=== PATIENT | female | born 1970 | race Caucasian/White ===

== ENCOUNTER 2017-01-05 23:34 | Inpatient (IN) | payer OTHER ==
--- NOTE | 2017-01-05 23:55 | ED ---
General Adult HPI - General Stated complaint: reaction to med Time Seen by Provider: 01/05/17 23:43 Source: RN notes reviewed, old records reviewed - History of Present Illness Initial comments: This is a 46-year-old female to the ER for evaluation of shaking and traveling all over. Patient is on multiple medical's medications, psychiatric medications as admit to marijuana. Patient coming to she states her medications are making her shake and twitch. Unsure why. No new medications has not stopped taking any medications and denies illicit drugs. - Related Data Home Medications Medication Instructions Recorded Confirmed RX: HYDROcodone/APAP 7.5-325MG 1 tab PO TID PRN 04/21/14 02/11/16 [[place] 7.5-325] RX: Ipratropium/Albuterol Sulfate 1 puff INHALATION RT-Q6H PRN 11/30/15 02/11/16 [Combivent Respimat Inhaler] RX: Butalb/APAP/Caff 50-325-40Mg 1 tab PO Q4H PRN 12/31/15 02/11/16 [Fioricet 50-325-40] RX: clonazePAM [KlonoPIN] 0.5 mg PO HS 12/31/15 02/11/16 RX: ARIPiprazole [Abilify] 2 mg PO HS 02/11/16 02/11/16 RX: Gabapentin [Neurontin] 800 mg PO TID 02/11/16 02/11/16 metroNIDAZOLE [Metronidazole] 250 mg PO TID 02/11/16 02/11/16 Previous Rx's Medication Instructions Recorded RX: Atenolol [Tenormin] 12.5 mg PO BID #30 dose 12/04/15 RX: DULoxetine HCL [Cymbalta] 90 mg PO DAILY #90 capsule. 01/04/16 RX: oxyCODONE-APAP 5-325MG 1 tab PO Q6HR PRN #20 tab 02/11/16 [Percocet 5-325 mg] Allergies Allergy/AdvReac Type Severity Reaction Status Date / Time No Known Allergies Allergy Verified 01/05/17 23:56 Review of Systems ROS Statement: Those systems with pertinent positive or pertinent negative responses have been documented in the HPI. ROS Other: All systems not noted in ROS Statement are negative. Past Medical History Past Medical History: Chest Pain / Angina, Hypertension, Neurologic Disorder Additional Past Medical History / Comment(s): chronic back pain, headaches, rapid heart beat, anxiety, seizure 2015 in August, CAD, migraines History of Any Multi-Drug Resistant Organisms: None Reported Past Surgical History: Adenoidectomy, Orthopedic Surgery, Tonsillectomy, Tubal Ligation, Uterine Ablation Additional Past Surgical History / Comment(s): novasure implant, left ankle ORIF , oral surgery T + A, tubal ligation, open reduction and internal fixation of left ankle. Past Anesthesia/Blood Transfusion Reactions: No Reported Reaction Past Psychological History: Anxiety, Depression Smoking Status: Current every day smoker Past Alcohol Use History: None Reported Past Drug Use History: Marijuana Additional Drug Use History / Comment(s): occasional, smokes to get an appetite. - Past Family History Mother Family Medical History: COPD Sister(s) Family Medical History: No Reported History Brother(s) Family Medical History: Cancer Son(s) Family Medical History: No Reported History father Family Medical History: Cancer Additional Family Medical History / Comment(s): colon ca General Exam - General Exam Comments Initial Comments: Patient having generalized tonic activity, spreading throughout all limbs. General appearance: alert, in no apparent distress Head exam: Present: atraumatic, normocephalic, normal inspection Eye exam: Present: normal appearance, PERRL, EOMI. Absent: scleral icterus, conjunctival injection, periorbital swelling ENT exam: Present: normal exam, mucous membranes moist Neck exam: Present: normal inspection. Absent: tenderness, meningismus, lymphadenopathy Respiratory exam: Present: normal lung sounds bilaterally. Absent: respiratory distress, wheezes, rales, rhonchi, stridor Cardiovascular Exam: Present: regular rate, normal rhythm, normal heart sounds. Absent: systolic murmur, diastolic murmur, rubs, gallop, clicks GI/Abdominal exam: Present: soft, normal bowel sounds. Absent: distended, tenderness, guarding, rebound, rigid Extremities exam: Present: normal inspection, full ROM, normal capillary refill. Absent: tenderness, pedal edema, joint swelling, calf tenderness Back exam: Present: normal inspection Neurological exam: Present: alert, oriented X3, CN II-XII intact Psychiatric exam: Present: normal affect, normal mood Skin exam: Present: warm, dry, intact, normal color. Absent: rash Course Vital Signs 01/05/17 01/06/17 01/06/17 23:53 01:40 01:44 Temperature 99.1 F Pulse Rate 117 H 107 H Respiratory 18 16 Rate Blood Pressure 127/70 122/69 O2 Sat by Pulse 90 L 91 L 96 Oximetry 01/06/17 01/06/17 02:51 03:33 Temperature 98.6 F Pulse Rate 107 H 70 Respiratory 16 20 Rate Blood Pressure 111/60 107/63 O2 Sat by Pulse 98 96 Oximetry - Reevaluation(s) Reevaluation #1: 01/06/17 00:56 Went to give patient sedated medications for possible dyskinesia, patient's tremoring tremor trembling has stopped at this point in patient was sleeping, pulse ox normal Reevaluation #2: 01/06/17 03:57 Went to arouse patient, patient awoke and began to vomit profusely. Patient not answering questions at this time, then had mild seizure-like activity. After seizure-like activity patient remained alert but unresponsive Medical Decision Making - Medical Decision Making 46 seen at ER for evaluation of shaking tremor possible medication reaction. Patient has physiologic activity here in the emergency room. Patient be admitted for new onset seizure, prolonged postictal period, poor historian secondary to clinical condition and drug abuse - Lab Data Result diagrams: 01/06/17 00:30 01/06/17 00:30 Lab Results 01/06/17 01/06/17 01/06/17 Range/Units 00:30 00:30 00:30 WBC 16.0 H (3.8-10.6) k/uL RBC 4.13 (3.80-5.40) m/uL Hgb 13.5 (11.4-16.0) gm/dL Hct 42.0 (34.0-46.0) % MCV 101.7 H (80.0-100.0) fL MCH 32.7 (25.0-35.0) pg MCHC 32.2 (31.0-37.0) g/dL RDW 13.9 (11.5-15.5) % Plt Count 284 (150-450) k/uL Neutrophils % 73 % Lymphocytes % 18 % Monocytes % 6 % Eosinophils % 1 % Basophils % 1 % Neutrophils # 11.7 H (1.3-7.7) k/uL Lymphocytes # 3.0 (1.0-4.8) k/uL Monocytes # 0.9 (0-1.0) k/uL Eosinophils # 0.1 (0-0.7) k/uL Basophils # 0.1 (0-0.2) k/uL Macrocytosis Slight PT (9.0-12.0) sec INR (<1.2) APTT (22.0-30.0) sec Sodium 137 (137-145) mmol/L Potassium 4.1 (3.5-5.1) mmol/L Chloride 102 (98-107) mmol/L Carbon Dioxide 17 L (22-30) mmol/L Anion Gap 18 mmol/L BUN 8 (7-17) mg/dL Creatinine 0.60 (0.52-1.04) mg/dL Est GFR (MDRD) Af Amer >60 (>60 ml/min/1.73 sqM) Est GFR (MDRD) Non-Af >60 (>60 ml/min/1.73 sqM) Glucose 126 H (74-99) mg/dL Calcium 8.9 (8.4-10.2) mg/dL Phosphorus 4.7 H (2.5-4.5) mg/dL Magnesium 1.8 (1.6-2.3) mg/dL Total Bilirubin 0.2 (0.2-1.3) mg/dL AST 40 H (14-36) U/L ALT 30 (9-52) U/L Alkaline Phosphatase 102 (38-126) U/L Total Creatine Kinase 90 (30-135) U/L CK-MB (CK-2) 0.4 (0.0-2.4) ng/mL CK-MB (CK-2) Rel Index 0.4 Troponin I <0.012 (0.000-0.034) ng/mL Total Protein 6.7 (6.3-8.2) g/dL Albumin 4.3 (3.5-5.0) g/dL Salicylates <1.0 mg/dL Urine Opiates Screen (NotDetected) Ur Oxycodone Screen (NotDetected) Urine Methadone Screen (NotDetected) Ur Propoxyphene Screen (NotDetected) Acetaminophen <10.0 ug/mL Ur Barbiturates Screen (NotDetected) U Tricyclic Antidepress (NotDetected) Ur Phencyclidine Scrn (NotDetected) Ur Amphetamines Screen (NotDetected) U Methamphetamines Scrn (NotDetected) U Benzodiazepines Scrn (NotDetected) Urine Cocaine Screen (NotDetected) U Marijuana (THC) Screen (NotDetected) Serum Alcohol <10 mg/dL 01/06/17 01/06/17 Range/Units 00:30 01:15 WBC (3.8-10.6) k/uL RBC (3.80-5.40) m/uL Hgb (11.4-16.0) gm/dL Hct (34.0-46.0) % MCV (80.0-100.0) fL MCH (25.0-35.0) pg MCHC (31.0-37.0) g/dL RDW (11.5-15.5) % Plt Count (150-450) k/uL Neutrophils % % Lymphocytes % % Monocytes % % Eosinophils % % Basophils % % Neutrophils # (1.3-7.7) k/uL Lymphocytes # (1.0-4.8) k/uL Monocytes # (0-1.0) k/uL Eosinophils # (0-0.7) k/uL Basophils # (0-0.2) k/uL Macrocytosis PT 9.6 (9.0-12.0) sec INR 0.9 (<1.2) APTT 25.2 (22.0-30.0) sec Sodium (137-145) mmol/L Potassium (3.5-5.1) mmol/L Chloride (98-107) mmol/L Carbon Dioxide (22-30) mmol/L Anion Gap mmol/L BUN (7-17) mg/dL Creatinine (0.52-1.04) mg/dL Est GFR (MDRD) Af Amer (>60 ml/min/1.73 sqM) Est GFR (MDRD) Non-Af (>60 ml/min/1.73 sqM) Glucose (74-99) mg/dL Calcium (8.4-10.2) mg/dL Phosphorus (2.5-4.5) mg/dL Magnesium (1.6-2.3) mg/dL Total Bilirubin (0.2-1.3) mg/dL AST (14-36) U/L ALT (9-52) U/L Alkaline Phosphatase (38-126) U/L Total Creatine Kinase (30-135) U/L CK-MB (CK-2) (0.0-2.4) ng/mL CK-MB (CK-2) Rel Index Troponin I (0.000-0.034) ng/mL Total Protein (6.3-8.2) g/dL Albumin (3.5-5.0) g/dL Salicylates mg/dL Urine Opiates Screen Not Detected (NotDetected) Ur Oxycodone Screen Not Detected (NotDetected) Urine Methadone Screen Not Detected (NotDetected) Ur Propoxyphene Screen Not Detected (NotDetected) Acetaminophen ug/mL Ur Barbiturates Screen Not Detected (NotDetected) U Tricyclic Antidepress Not Detected (NotDetected) Ur Phencyclidine Scrn Not Detected (NotDetected) Ur Amphetamines Screen Not Detected (NotDetected) U Methamphetamines Scrn Not Detected (NotDetected) U Benzodiazepines Scrn Not Detected (NotDetected) Urine Cocaine Screen Not Detected (NotDetected) U Marijuana (THC) Screen Detected H (NotDetected) Serum Alcohol mg/dL Disposition Clinical Impression: Seizure, New onset seizure, Drug abuse, Recurrent seizures, Nausea and vomiting , Postictal state Disposition: ADMITTED IP TO THIS [facility] Condition: Fair Referrals: Bob Odom DO [Primary Care Provider] - 1-2 days
[2017-01-06] MEDS ORDERED: SODIUM CHLORIDE 0.9% 1,000 ML IV STA ×3 (00:06→03:54)
[2017-01-06] MEDS ORDERED: LORazepam 2 MG/ML INJ IV STA (00:07)
[2017-01-06] MEDS ORDERED: diphenhydrAMINE 50 MG/ML 1 ML VIAL IVP STA (00:07)
[2017-01-06 00:47] LABS: Basophils # (A) 0.1 k/uL (0-0.2); Basophils % (A) 1 %; CH 32.9; CHCM 32.5; Eosinophils # (A) 0.1 k/uL (0-0.7); Eosinophils % (A) 1 %; HDW 2.17; HGB 13.5 gm/dL (11.4-16.0); Luc # (Auto) 0.26; Luc % (Auto) 2; Lymphocytes % (A) 18 %; MCH 32.7 pg (25.0-35.0); MCHC 32.2 g/dL (31.0-37.0); MCV 101.7 fL (80.0-100.0); Macrocytosis Slight; Mean Platelet Volume 8.2; Monocytes # (A) 0.9 k/uL (0-1.0); Monocytes % (A) 6 %; Neutrophils # (A) 11.7 k/uL (1.3-7.7); Neutrophils % (A) 73 %; RBC 4.13 m/uL (3.80-5.40); RDW 13.9 % (11.5-15.5); WBC (Perox) 16.68
[2017-01-06 00:55] LABS: INR 0.9 (<1.2); Partial Thromboplastin Time 25.2 sec (22.0-30.0); Prothrombin Time 9.6 sec (9.0-12.0)
[2017-01-06 00:57] LABS: ALT 30 U/L (9-52); AST 40 U/L (14-36); Acetaminophen <10.0 ug/mL; Alkaline Phosphatase 102 U/L (38-126); Anion Gap 18 mmol/L; Blood Urea Nitrogen 8 mg/dL (7-17); Calcium 8.9 mg/dL (8.4-10.2); Carbon Dioxide 17 mmol/L (22-30); Chloride 102 mmol/L (98-107); Glucose 126 mg/dL (74-99); Magnesium 1.8 mg/dL (1.6-2.3); Non-African American GFR(MDRD) >60 (>60 ml/min/1.73 sqM); Phosphorus 4.7 mg/dL (2.5-4.5); Potassium 4.1 mmol/L (3.5-5.1); Salicylate <1.0 mg/dL; Sodium 137 mmol/L (137-145); Total Bilirubin 0.2 mg/dL (0.2-1.3); Total Protein 6.7 g/dL (6.3-8.2)
[2017-01-06 00:58] LABS: Alcohol <10 mg/dL
[2017-01-06 01:06] LABS: Creatine Kinase 90 U/L (30-135)
[2017-01-06 01:20] LABS: Creatine Kinase MB 0.4 ng/mL (0.0-2.4); Troponin I <0.012 ng/mL (0.000-0.034)
[2017-01-06] MEDS ORDERED: ONDANSETRON 4 MG/2 ML VIAL IVP STA ×2 (03:48→03:52)
[2017-01-06] MEDS ORDERED: levETIRAcetam IV 1,500 MG in SALINE 1 100ML.BAG IVPB STA (03:48)
[2017-01-06] MEDS ORDERED: SODIUM CHLORIDE 0.9% 500 ML IV STA (03:54)
[2017-01-06] MEDS: SODIUM CHLORIDE 0.9% 1,000 ML IV SCH ×3 (04:11→16:09)
--- NOTE | 2017-01-06 06:05 | CT ---
EXAM: CT Head Without Intravenous Contrast CLINICAL HISTORY: Reason: Pain TECHNIQUE: Axial computed tomography images of the head/brain without intravenous contrast. DLP is [address] exam was performed using one or more of the following dose reduction techniques: automated exposure control, adjustment of the mA and/or kV according to patient size, and/or use of iterative reconstruction technique. Coronal and sagittal reformatted images were created and reviewed. COMPARISON: CT head February 11, 2016 FINDINGS: Brain: No acute intracranial hemorrhage No territorial infarct Pelayo- white matter differentiation is maintained No edema. Midline shift: No midline shift Ventricles: Ventricles are normal in size Bones/joints: Calvarium shows no fracture Soft tissues: Unremarkable. Sinuses: Sinuses are clear Mastoid air cells: Unremarkable as visualized. No mastoid effusion. IMPRESSION: No acute intracranial hemorrhage, territorial infarct, mass, midline shift or extra-axial fluid collection
--- NOTE | 2017-01-06 10:47 | XR ---
EXAMINATION TYPE: XR chest 1V portable DATE OF EXAM: 01/06/2017 Comparison: 02/05/2016 Clinical History: 46-year-old female shortness of breath, pneumonia Findings: Heart is normal size. Aorta and pulmonary vasculature within normal limits. Mild interstitial promine nce appears increased from prior. No guillermo consolidation or pleural effusion. Impression: Interstitial changes appear slightly more accentuated from prior. Correlate for possible etiologies i ncluding bronchitis, atypical pneumonias, uncontrolled asthma, and interstitial pneumonitis.
[2017-01-06 11:29] VITALS: BMI 21.4
[2017-01-06 13:28] LABS: Appearance,Urine Clear (Clear); Bilirubin,Urine Negative (Negative); Glucose,Urine (UA) Negative (Negative); Ketones,Urine Negative (Negative); Leukocyte Esterase,Urine Negative (Negative); Nitrite,Urine Negative (Negative); Protein,Urine Negative (Negative); Specific Gravity,Urine 1.007 (1.001-1.035); UA Billing (MACRO vs. MICRO) CHEM; Urobilinogen,Urine <2.0 mg/dL (<2.0)
[2017-01-06] MEDS: ACETAMINOPHEN TAB 325 MG TAB PO PRN (13:29)
--- NOTE | 2017-01-06 15:47 | HP ---
HISTORY AND PHYSICAL CHIEF COMPLAINT: Shaking and tremors. HISTORY OF PRESENT ILLNESS: This 46-year-old woman with a past history of multiple medical problems, including history of hypertension, history of adenoidectomy, history of anxiety and depression being followed by Dr. Elizabeth Odom in the outpatient setting, was complaining of shaking and the patient all over the body. Patient seizures was suspected. The patient was given Ativan here and . is admitted. Patient is not running a fever. Patient had suspicion for pneumonia. There is no history of any headache, loss of consciousness. The patient is rather drowsy at this time. PAST MEDICAL HISTORY: History of chest pain, angina, anxiety, depression and COPD. MEDICATIONS: Prior to admission include home medications: 1. Ultram 50 to 100 mg p.o. q.6h p.r.n. 2. Klonopin 0.5 mg q.h.s. 3. Remeron 15 mg q.h.s. 4. Mobic 15 mg p.o. 5. Combivent 1 puff q.6h p.r.n. 6. Neurontin 800 mg p.o. t.i.d. 7. Cymbalta 90 mg p.o. daily. 8. Abilify 2 mg q.h.s. ALLERGIES: None. REVIEW OF SYMPTOMS: Family history, social history and review of systems could not be taken. The patient is drowsy and stuporous. Family history of COPD present. PHYSICAL EXAM: Patient pulse is 101, blood pressure 140/50, respiration 18, temperature 100.5, pulse ox 100% on 4 L. HEENT: Conjunctivae normal. Oral mucosa moist. Neck is no jugular venous distention. No carotid bruit. No lymph node enlargement. Cardiovascular S1, S2 muffled. No S3, no S4. Respiratory: Breath sounds decreased in the bases. A few scattered rhonchi. ABDOMEN: Soft, nontender. No mass palpable. Legs no edema, no swelling. NERVOUS SYSTEM: Higher functions as mentioned earlier. Otherwise moves all 4 limbs. Unable to cooperate with full exam. Skin no ulcer, rash, bleeding. Lymphatics: No lymph nodes palpable in the neck, axillae or groin. JOINTS: No active deformity. LABS: WBC 16, glucose 120. Other labs are noted. ASSESSMENT: 1. Acute right lower lobe pneumonia with possible sepsis present on admission. 2. Rule out seizures. 3. Increased WBC. 4. Hypertension. 5. History of back pain. 6. History of degenerative joint disease. 7. History of anxiety and depression. 8. History of continued ongoing nicotine dependence. RECOMMENDATIONS AND DISCUSSION: In this 46-year-old woman who presented with multiple complex medical issues we will monitor the patient closely. Continue the current medications, continue management and symptomatic treatment. Otherwise we will initiate broad-spectrum IV antibiotics. Obtain cultures. Guarded prognosis because of multiple complex medical issues. I would also recommend continue the current medications. Neurology consultation has been sought. Otherwise DVT prophylaxis. Otherwise see orders for further details. Otherwise Keppra has been recommended by Dr. Stewart. Prognosis guarded. Further recommendations to follow. Patient is currently stuporous. MMODL / IJN: [id number] /
[2017-01-06] MEDS: HEPARIN SODIUM,PORCINE 5,000 UNIT/ML 1 ML VIAL SQ SCH (16:08)
[2017-01-06] MEDS: PIPERACILLIN-TAZOBACTAM 3.375 GM in DEXTROSE/WATER 1 50ML.BAG IVPB SCH (16:08)
[2017-01-06] MEDS: PANTOPRAZOLE 40 MG/10 ML VIAL IVP SCH (16:09)
--- NOTE | 2017-01-06 18:44 | P.CNNES ---
History of Present Illness Consult date: 01/06/17 History of Present Illness: The patient is a 46-year-old woman who was admitted to the hospital to the hospital with possible seizure. She reports that she had a seizure several months ago but did not seek medical attention. Apparently the patient had complained of shaking all over the body. He was admitted with acute right lower lobe pneumonia with possible sepsis. Neurology is requested to see the patient regarding possible seizures area the patient recently received a bolus of Keppra in the emergency room. He T of the brain which was unremarkable is a poor historian. She states she has history of seizures but did not seek any medical attention in the past. Still slightly confused and disoriented. Review of Systems ROS unobtainable: due to mental status Past Medical History Past Medical History: Chest Pain / Angina, Hypertension, Neurologic Disorder Additional Past Medical History / Comment(s): chronic back pain, headaches, rapid heart beat, anxiety, seizure 2015 in August, CAD, migraines History of Any Multi-Drug Resistant Organisms: None Reported Past Surgical History: Adenoidectomy, Orthopedic Surgery, Tonsillectomy, Tubal Ligation, Uterine Ablation Additional Past Surgical History / Comment(s): novasure implant, left ankle ORIF , oral surgery T + A, tubal ligation, open reduction and internal fixation of left ankle. Past Anesthesia/Blood Transfusion Reactions: No Reported Reaction Past Psychological History: Anxiety, Depression Smoking Status: Current every day smoker Past Alcohol Use History: None Reported Past Drug Use History: Marijuana Additional Drug Use History / Comment(s): occasional, smokes to get an appetite. - Past Family History Mother Family Medical History: COPD Sister(s) Family Medical History: No Reported History Brother(s) Family Medical History: Cancer Son(s) Family Medical History: No Reported History father Family Medical History: Cancer Additional Family Medical History / Comment(s): colon ca Medications and Allergies Home Medications Medication Instructions Recorded Confirmed Type Ipratropium/Albuterol Sulfate 1 puff INHALATION RT-Q6H PRN 11/30/15 01/06/17 History [Combivent Respimat Inhaler] clonazePAM [KlonoPIN] 0.5 mg PO HS 12/31/15 01/06/17 History DULoxetine HCL [Cymbalta] 90 mg PO DAILY #90 capsule. 01/04/16 01/06/17 Rx ARIPiprazole [Abilify] 2 mg PO HS 02/11/16 01/06/17 History Gabapentin [Neurontin] 800 mg PO TID 02/11/16 01/06/17 History Meloxicam [Mobic] 15 mg PO DAILY 01/06/17 01/06/17 History Mirtazapine [Remeron] 15 mg PO HS 01/06/17 01/06/17 History traMADol HCL [Ultram] 50 - 100 mg PO Q6H PRN 01/06/17 01/06/17 History Allergies Allergy/AdvReac Type Severity Reaction Status Date / Time No Known Allergies Allergy Verified 01/06/17 07:57 Physical Examination - Vital Signs Vital Signs: Vital Signs Temp Pulse Pulse Resp BP BP Pulse Ox 01/06/17 16:00 95 18 01/06/17 15:00 99.2 F 95 18 109/55 93 L 01/06/17 12:22 101.2 F H 01/06/17 06:59 100.5 F H 101 H 18 106/58 100 01/06/17 05:23 92 99/72 100 01/06/17 05:03 86 18 110/76 100 01/06/17 04:14 104 H 20 118/62 99 01/06/17 04:07 116 H 128/68 92 L 01/06/17 03:33 98.6 F 70 20 107/63 96 01/06/17 02:51 107 H 16 111/60 98 01/06/17 01:44 96 01/06/17 01:40 107 H 16 122/69 91 L 01/05/17 23:53 99.1 F 117 H 18 127/70 90 L Intake and Output 01/06/17 01/06/17 01/06/17 06:59 14:59 22:59 Intake Total 500 700 Output Total 700 Balance 500 0 Intake: Amount of Fluid Infused ( 500 ml) Intake, IV Titration 700 Amount Sodium Chloride 0.9% 1, 700 000 ml @ 100 mls/hr IV . Q10H [facility] Rx#:[id number] Output: Urine 700 Other: Voiding Method Toilet Weight 49.89 kg 49.89 kg Patient Weight 01/07/17 06:59 Weight 49.89 kg - Constitutional General appearance: disheveled - Respiratory Respiratory: lungs clear - Cardiovascular Cardiovascular: regular rate, normal S1, normal S2 - Integumentary Integumentary: normal - Neurologic Status she was awake alert and oriented to place she did not know the year there was no a aphasia or dysarthria Cranial nerve examination: PERRL, EOMI, VFF, face symmetric, tongue midline Speech examination: intact Sensorimotor examination: intact Detailed motor examination: grossly full strength in all extremities - Psychiatric Psychiatric: mood/affect appropriate Results - Laboratory Findings CBC and BMP: 01/06/17 00:30 01/06/17 00:30 Abnormal Lab Findings: Abnormal Labs 01/06/17 01/06/17 01/06/17 00:30 00:30 01:15 WBC 16.0 H MCV 101.7 H Neutrophils # 11.7 H Carbon Dioxide 17 L Glucose 126 H Phosphorus 4.7 H AST 40 H U Marijuana (THC) Screen Detected H Assessment and Plan (1) Seizure Status: Acute Code(s): R56.9 - UNSPECIFIED CONVULSIONS Plan: The patient a 46-year-old woman with history of new onset seizure. She is admitted to the hospital with pneumonia. The patient was loaded with Keppra in the emergency room and will continue maintenance dose of Keppra. We'll check Keppra level in a.m. Recommend EEG. CT brain was done in the emergency room and was unremarkable. Recommend MRI of the brain
[2017-01-06] MEDS: ARIPiprazole 2 MG TAB PO SCH (22:52)
[2017-01-06] MEDS: levETIRAcetam IV 1,000 MG in SALINE 1 100ML.BAG IVPB SCH (22:53)
[2017-01-06] MEDS: MIRTAZAPINE 15 MG TAB PO SCH (22:53)
[2017-01-07] MEDS: PIPERACILLIN-TAZOBACTAM 3.375 GM in DEXTROSE/WATER 1 50ML.BAG IVPB SCH ×3 (00:12→17:51)
[2017-01-07] MEDS: HEPARIN SODIUM,PORCINE 5,000 UNIT/ML 1 ML VIAL SQ SCH ×2 (05:11→17:51)
[2017-01-07] MEDS: SODIUM CHLORIDE 0.9% 1,000 ML IV SCH ×2 (05:11→11:32)
[2017-01-07 07:48] LABS: Basophils % (A) 0 %; CH 32.2; CHCM 31.9; Eosinophils % (A) 1 %; HDW 2.18; HGB 12.5 gm/dL (11.4-16.0); Luc # (Auto) 0.16; Luc % (Auto) 2; Lymphocytes # (A) 1.6 k/uL (1.0-4.8); Lymphocytes % (A) 22 %; MCH 31.8 pg (25.0-35.0); MCHC 31.4 g/dL (31.0-37.0); MCV 101.5 fL (80.0-100.0); Macrocytosis Slight; Mean Platelet Volume 7.8; Monocytes # (A) 0.4 k/uL (0-1.0); Monocytes % (A) 6 %; Neutrophils # (A) 5.1 k/uL (1.3-7.7); Neutrophils % (A) 70 %; RBC 3.94 m/uL (3.80-5.40); WBC 7.4 k/uL (3.8-10.6); WBC (Perox) 7.77
[2017-01-07 07:57] LABS: Anion Gap 11 mmol/L; Blood Urea Nitrogen 11 mg/dL (7-17); Calcium 8.6 mg/dL (8.4-10.2); Carbon Dioxide 16 mmol/L (22-30); Chloride 113 mmol/L (98-107); Glucose 72 mg/dL (74-99); Non-African American GFR(MDRD) >60 (>60 ml/min/1.73 sqM); Sodium 140 mmol/L (137-145)
[2017-01-07 08:05] LABS: Potassium 4.2 mmol/L (3.5-5.1)
[2017-01-07] MEDS: PANTOPRAZOLE 40 MG/10 ML VIAL IVP SCH (10:19)
[2017-01-07] MEDS: levETIRAcetam IV 1,000 MG in SALINE 1 100ML.BAG IVPB SCH ×2 (10:20→21:50)
--- NOTE | 2017-01-07 13:00 | MR ---
EXAMINATION TYPE: MR brain wo con DATE OF EXAM: 01/07/2017 12:50 PM. COMPARISON: NONE. HISTORY: Seizure. Technique: Multiplanar, multiecho imaging of the brain was obtained without intravenous contrast. A fast brain protocol was utilized. FINDINGS: There is considerable motion artifact present on the study. Midline structures are unremarkable. There is a normal craniocervical junction. Echoplanar diffusion imaging is normal. There is a normal vertebral artery flow void. There are middle cerebral artery flow voids bilaterally . The carotid artery flow voids are not visualized due to patient motion artifact. There is no large CP angle mass lesion. There are scattered, subcentimeter high signal lesions in the deep white matter tracts of the cerebra l hemispheres. Only approximately 3 are demonstrated on this study. Numerous lesions may have been ov erlooked due to excessive patient motion artifact. There is no mass effect, midline shift or intracra nial blood. IMPRESSION: 1. MARKEDLY SUBOPTIMAL EXAMINATION DUE TO EXCESSIVE PATIENT MOTION ARTIFACT. 2. NO ACUTE INTRACRANIAL ABNORMALITY. 3. SCATTERED, HIGH SIGNAL FLAIR LESIONS WHICH MAY HAVE BEEN UNDERESTIMATED. THESE ARE NONSPECIFIC. A DIFFERENTIAL DIAGNOSIS INCLUDES DEMYELINATION, SMALL VESSEL DISEASE, HYPERTENSION, MIGRAINE HEADACHES AND LYME'S DISEASE.
--- NOTE | 2017-01-07 16:48 | PN ---
PROGRESS NOTE DATE OF SERVICE: 01/07/2017 INTERVAL HISTORY: This 46-year-old woman who was admitted with acute right lower pneumonia with possible sepsis is being closely monitored. The patient also had seizures also. Medication initiated by Dr. Stewart. MRI of the brain was done, which showed examination. No acute abnormality was noted. Nonspecific flare lesions also noted, which might suggest small vessel disease. No chest pain, no palpitation. PHYSICAL EXAM: Alert and oriented x3. Pulse 89, blood pressure 106/82, respiratory 20, temperature 98.2, pulse ox 97% on room air. HEENT: Conjunctivae normal. NECK: No jugular venous distention. CARDIOVASCULAR: S1, S2. RESPIRATORY: Breath sounds diminished in the bases. A few scattered rhonchi. No crackles. ABDOMEN: Soft, nontender. No mass palpable. LEGS: No edema. NERVOUS SYSTEM: No focal deficits. LABS: Sodium is 7.4, MCV 101.5. Sodium 140, potassium 4.2, CO2 16. UA noted, is positive. ASSESSMENT: 1. Acute right lower lobe pneumonia with possible sepsis present on admission, possibly aspiration. 2. Possible seizure, generalized tonic-clonic. 3. Increased WBC. 4. Hypertension. 5. History back pain. 6. History of degenerative joint disease. 7. History anxiety, depression. 8. Continued ongoing nicotine dependence. DISCUSSION AND RECOMMENDATIONS: Continue the current medications, symptomatic treatment. Continue with the broad - spectrum antibiotics. Continue the rest of the medications. Continue the Keppra. Closely follow with Neurology. Guarded prognosis. Further recommendations to follow. MMODL / IJN: [id number] / MTDD
[2017-01-07] MEDS: ACETAMINOPHEN TAB 325 MG TAB PO PRN (21:46)
[2017-01-07] MEDS: ARIPiprazole 2 MG TAB PO SCH (21:51)
[2017-01-07] MEDS: MIRTAZAPINE 15 MG TAB PO SCH (21:51)
[2017-01-08] MEDS: PIPERACILLIN-TAZOBACTAM 3.375 GM in DEXTROSE/WATER 1 50ML.BAG IVPB SCH ×3 (02:23→15:54)
[2017-01-08] MEDS: HEPARIN SODIUM,PORCINE 5,000 UNIT/ML 1 ML VIAL SQ SCH ×2 (04:06→15:54)
[2017-01-08 07:03] LABS: Basophils % (A) 0 %; CH 32.2; CHCM 32.3; Eosinophils % (A) 1 %; HCT 37.3 % (34.0-46.0); HDW 2.27; HGB 12.2 gm/dL (11.4-16.0); Luc # (Auto) 0.21; Luc % (Auto) 3; Lymphocytes % (A) 30 %; MCH 32.8 pg (25.0-35.0); MCHC 32.8 g/dL (31.0-37.0); Mean Platelet Volume 7.8; Monocytes # (A) 0.4 k/uL (0-1.0); Monocytes % (A) 6 %; Neutrophils # (A) 4.1 k/uL (1.3-7.7); Neutrophils % (A) 61 %; RBC 3.73 m/uL (3.80-5.40); WBC 6.7 k/uL (3.8-10.6); WBC (Perox) 7.07
[2017-01-08 07:09] LABS: Anion Gap 14 mmol/L; Blood Urea Nitrogen 11 mg/dL (7-17); Calcium 8.4 mg/dL (8.4-10.2); Carbon Dioxide 14 mmol/L (22-30); Chloride 116 mmol/L (98-107); Glucose 66 mg/dL (74-99); Non-African American GFR(MDRD) >60 (>60 ml/min/1.73 sqM); Sodium 144 mmol/L (137-145)
[2017-01-08] MEDS: levETIRAcetam IV 1,000 MG in SALINE 1 100ML.BAG IVPB SCH ×2 (07:53→23:24)
[2017-01-08] MEDS: ACETAMINOPHEN TAB 325 MG TAB PO PRN ×3 (08:17→23:33)
[2017-01-08] MEDS: PANTOPRAZOLE 40 MG/10 ML VIAL IVP SCH (08:56)
[2017-01-08] MEDS: SODIUM CHLORIDE 0.9% 1,000 ML IV SCH (12:12)
--- NOTE | 2017-01-08 17:58 | PN ---
PROGRESS NOTE DATE OF SERVICE: 01/08/2017 INTERVAL HISTORY: This 46-year-old woman was admitted with acute right pneumonia and as well as possible seizures. Neurology following the patient closely. Patient is on Keppra at this time. Brain MRI has been done by Dr. Mojgan Stewart, which showed scattered high signal FLAIR lesions indicating probably small vessel disease. No chest pain. No palpitations. No fever. EXAM: Alert, and oriented x3. Pulse is 53, blood pressure 130/62, respiratory 20, temperature 97.9, pulse ox 98% room air. HEENT: Conjunctivae normal. NECK: No jugular venous distention. CARDIOVASCULAR: S1, S2. RESPIRATORY: Breath sounds diminished in the bases. A few scattered rhonchi. No crackles. ABDOMEN: Soft, nontender. NERVOUS SYSTEM: No focal deficits. LABS: CBC within normal limits. The BMP noted. ASSESSMENT: 1. Acute right lower lobe pneumonia with possible sepsis present on admission, possibly aspiration. 2. Possible seizure generalized tonic-clonic. 3. Increased WBC. 4. Hypertension. 5. History back pain. 6. History of degenerative joint disease. 7. Anxiety depression. 8. Continued ongoing nicotine dependence. RECOMMENDATION AND DISCUSSION: I recommend to continue current management and continue symptomatic treatment. Otherwise at this time I recommend continue the antibiotics. Continue the rest of the medications. Continue the Keppra. Closely follow with Neurology. The prognosis guarded because of multiple complex medical issues. DVT prophylaxis and Dr. Soto will follow. MMODL / IJN: [id number] /
[2017-01-08] MEDS: ARIPiprazole 2 MG TAB PO SCH (23:22)
[2017-01-08] MEDS: MIRTAZAPINE 15 MG TAB PO SCH (23:22)
[2017-01-08 23:42] VITALS: RESP 16
[2017-01-09] MEDS: PIPERACILLIN-TAZOBACTAM 3.375 GM in DEXTROSE/WATER 1 50ML.BAG IVPB SCH ×2 (04:26→08:37)
[2017-01-09] MEDS: HEPARIN SODIUM,PORCINE 5,000 UNIT/ML 1 ML VIAL SQ SCH (04:27)
[2017-01-09] MEDS: ACETAMINOPHEN TAB 325 MG TAB PO PRN ×3 (08:27→21:29)
[2017-01-09] MEDS: PANTOPRAZOLE 40 MG/10 ML VIAL IVP SCH (08:37)
[2017-01-09] MEDS: levETIRAcetam IV 1,000 MG in SALINE 1 100ML.BAG IVPB SCH ×2 (08:37→20:37)
[2017-01-09 09:13] LABS: Basophils % (A) 0 %; CH 32.3; Eosinophils # (A) 0.1 k/uL (0-0.7); Eosinophils % (A) 1 %; HDW 2.31; HGB 12.4 gm/dL (11.4-16.0); Luc # (Auto) 0.15; Luc % (Auto) 2; Lymphocytes # (A) 1.9 k/uL (1.0-4.8); Lymphocytes % (A) 30 %; MCH 32.3 pg (25.0-35.0); MCHC 32.8 g/dL (31.0-37.0); MCV 98.6 fL (80.0-100.0); Mean Platelet Volume 8.1; Monocytes # (A) 0.4 k/uL (0-1.0); Monocytes % (A) 6 %; Neutrophils # (A) 3.8 k/uL (1.3-7.7); Neutrophils % (A) 60 %; RBC 3.86 m/uL (3.80-5.40); RDW 12.9 % (11.5-15.5); WBC 6.3 k/uL (3.8-10.6); WBC (Perox) 6.57
[2017-01-09 09:21] LABS: Anion Gap 11 mmol/L; Blood Urea Nitrogen 9 mg/dL (7-17); Calcium 8.7 mg/dL (8.4-10.2); Carbon Dioxide 18 mmol/L (22-30); Chloride 114 mmol/L (98-107); Glucose 96 mg/dL (74-99); Non-African American GFR(MDRD) >60 (>60 ml/min/1.73 sqM); Potassium 3.8 mmol/L (3.5-5.1); Sodium 143 mmol/L (137-145)
--- NOTE | 2017-01-09 14:56 | PN ---
PROGRESS NOTE DATE OF SERVICE: 01/09/2017 PRESENTING COMPLAINT: Shaking activity. INTERVAL HISTORY: This patient was admitted with shaking and tremor, felt to be possible seizure activity. Had an MRI which is also nonspecific. awaiting EEG, no further episodes. Tolerating a diet. REVIEW OF SYSTEMS: Done for constitutional, cardiovascular, GI, pulmonary; relevant findings as above. CURRENT MEDICATIONS: Reviewed that include IV Keppra, IV Zosyn. PHYSICAL EXAMINATION: Temperature 97.5 pulse 53, respirations 16, blood pressure 137/87. Pulse ox 97% on room air. GENERAL APPEARANCE: Lying in bed, comfortable. EYES: Pupils equal, conjunctivae normal, NECK: JVD not raised. Mass not palpable. RESPIRATORY EFFORT: Lungs decreased breath sounds. CARDIOVASCULAR: First and second sounds, no edema. ABDOMEN: Soft,nontender, liver and spleen not palpable. PSYCHIATRY: Alert and oriented x3. Mood and affect is normal. INVESTIGATIONS: White count 6.3, potassium 3.8. Bicarb 18. Urine drug screen positive for marijuana. MRI of the brain, nonspecific questionable demyelination. ASSESSMENT: 1. Activity of tremors and shaking could be seizure disorder. 2. Chronic nicotine dependence, patient an active cigarette smoker. 3. Recreational marijuana use. 4. Essential hypertension. 5. Anxiety, depression not otherwise specified. 6. Interstitial pneumonitis. PLAN: Await further input from Neurology pending EEG. Will see after reviewing the MRI. Will switch the patient over to oral Ceftin. MMODL / IJN: [id number] /
[2017-01-09] MEDS: HYDROmorphone 0.5 MG/0.5 ML SYRINGE IVP PRN ×2 (16:24→23:10)
[2017-01-09] MEDS: NICOTINE 21MG/24HR PATCH TRANSDERM SCH (16:24)
[2017-01-09] MEDS: ENOXAPARIN 40 MG/0.4 ML SYRINGE SQ SCH (16:25)
--- NOTE | 2017-01-09 18:35 | P.PN ---
Progress Note - Text Progress Note Date: 01/09/17 DATE OF SERVICE: 01/09/2017 PRESENTING COMPLAINT: shaking and tremors HISTORY OF PRESENT ILLNESS: 46-year-old female who presented to the emergency department with shaking sent and tremors felt to be a possible seizure. Admitted for the same MRI completed with nonspecific results, EEG pending. No further seizure episodes. INTERVAL HISTORY: 01/09/2017: Patient sitting up in the bed visiting with a friend no acute distress noted appears comfortable. Tolerating her diet. Ambulatory in the room and hallway has had no further seizure episodes.we'll continue Keppra. REVIEW OF SYSTEMS: Done for constitutional ,cardiovascular, GI, pulmonary with relevant findings as above. CURRENT MEDICATIONS Abilify 2 mg by mouth at bedtime, Ceftin 500 mg by mouth twice a day, Lovenox, Dilaudid, Keppra 100 mg IV piggyback, Remeron 15 mg by mouth at bedtime, nicotine patch, Protonix 40 mg IV push daily. PHYSICAL EXAM VITAL SIGNS: temperature 97.5, pulse 53, respiratory rate 16, blood pressure 1:30 737, oxygen saturation 97% on room air. GENERAL APPEARANCE: . Lying in bed, not in distress. EYES: Pupils equal. Conjunctiva normal. NECK: JVD not raised. Mass not palpable. RESPIRATORY: Respiratory effort normal. Lungs clear to auscultation. CARDIOVASCULAR: First and second sounds normal. No edema. ABDOMEN: Soft. Liver and spleen not palpable. No tenderness. No mass palpable. PSYCHIATRY: Alert and oriented x3. Mood and affect normal. NEUROLOGICAL: Cranial nerves grossly intact. No facial asymmetry. Power and sensation grossly intact INVESTIGATIONS: CBC grossly unremarkable, chloride 114, carbon dioxide 18. ASSESSMENT: -activity tremor and shaking could be seizure disorder. -Chronic nicotine dependence patient is an active cigarette smoker. -Recreational marijuana use. -Essential hypertension. -Anxiety, depression not otherwise specified. -Interstitial pneumonitis. PLAN: we'll await further input from neurology and EEG results continue Keppra continue seizure precautions and neuro checks. Plan of care discussed with the patient at the bedside she is in agreement will follow closely. [employer] statement: Patient was seen and examined by nurse practitioner Elizabeth Carmona and all elements of the case discussed with attending Dr. Soto
[2017-01-09] MEDS: MIRTAZAPINE 15 MG TAB PO SCH (20:37)
[2017-01-09] MEDS: CEFUROXIME 250 MG TAB PO SCH (20:37)
[2017-01-09] MEDS: ARIPiprazole 2 MG TAB PO SCH (20:37)
--- NOTE | 2017-01-09 21:47 | EEG ---
ELECTROENCEPHALOGRAM REPORT INTERPRETING PHYSICIAN: Nova Stewart M.D. INDICATION FOR EXAMINATION: This patient is a 46-year-old female being evaluated for new onset of tremors and twitching symptoms suggesting possible seizure disorder. The patient has been very lethargic. AGE: 46 EEG FINDINGS: A routine 21-channel awake digital EEG recording was accomplished utilizing the 10-20 international system with bipolar and referential montages. The background activity in the most alert resting state consists of a low to medium amplitude, fairly well developed and well sustained 5-6 Hertz activity over the posterior head regions. This posterior rhythm attenuates to eye opening. There is a small amount of low amplitude 18-20 Hertz beta activity seen maximally over the anterior head regions. Muscle and movement artifact was observed on a few occasions during the tracing. Hyperventilation was not performed. Photic stimulation at flash frequencies of 2-30 Hertz produced a minimal occipital driving response. No epileptiform discharges were seen. IMPRESSION: This EEG is moderately abnormal in a diffuse fashion due to slowing of the EEG background. The EEG failed to reveal any focal, lateralized, or epileptiform abnormalities. Clinical correlation is recommended. MMODL / IJN: [id number] /
[2017-01-10] MEDS ORDERED: PANTOPRAZOLE 40 MG TABLET PO SCH (07:30)
[2017-01-10] MEDS: CEFUROXIME 250 MG TAB PO SCH (07:43)
[2017-01-10] MEDS: ACETAMINOPHEN TAB 325 MG TAB PO PRN (07:43)
[2017-01-10] MEDS: ENOXAPARIN 40 MG/0.4 ML SYRINGE SQ SCH (07:43)
[2017-01-10] MEDS: NICOTINE 21MG/24HR PATCH TRANSDERM SCH (07:49)
[2017-01-10 07:59] VITALS: BP 140/75; PULSE 53; TEMP 98.6
[2017-01-10 08:15] LABS: Basophils % (A) 1 %; CH 32.9; CHCM 33.1; Eosinophils # (A) 0.1 k/uL (0-0.7); Eosinophils % (A) 1 %; HCT 40.9 % (34.0-46.0); HDW 2.38; HGB 13.3 gm/dL (11.4-16.0); Luc # (Auto) 0.17; Luc % (Auto) 3; Lymphocytes # (A) 2.2 k/uL (1.0-4.8); Lymphocytes % (A) 35 %; MCH 32.4 pg (25.0-35.0); MCHC 32.4 g/dL (31.0-37.0); MCV 99.8 fL (80.0-100.0); Mean Platelet Volume 7.6; Monocytes # (A) 0.3 k/uL (0-1.0); Monocytes % (A) 6 %; Neutrophils # (A) 3.5 k/uL (1.3-7.7); Neutrophils % (A) 55 %; RDW 12.9 % (11.5-15.5); WBC 6.2 k/uL (3.8-10.6); WBC (Perox) 6.12
[2017-01-10 08:35] LABS: Anion Gap 13 mmol/L; Blood Urea Nitrogen 7 mg/dL (7-17); Calcium 8.7 mg/dL (8.4-10.2); Carbon Dioxide 20 mmol/L (22-30); Chloride 111 mmol/L (98-107); Glucose 68 mg/dL (74-99); Non-African American GFR(MDRD) >60 (>60 ml/min/1.73 sqM); Potassium 3.8 mmol/L (3.5-5.1); Sodium 144 mmol/L (137-145)
[2017-01-10] MEDS ORDERED: levETIRAcetam 500 MG TAB PO SCH (09:00)
[2017-01-10] MEDS: HYDROmorphone 0.5 MG/0.5 ML SYRINGE IVP PRN (10:05)
--- NOTE | 2017-01-10 17:27 | P.DS ---
Providers Date of admission: 01/06/17 03:59 Expected date of discharge: 01/10/17 Attending physician: Dima Soto Consults: 01/06/17 03:59 Consult Physician Routine Consulting Provider: Nova Stewart Consult Reason/Comments: seizure Do you want consulting provider notified?: Yes Primary care physician: [facility] [place] Course: FINAL DIAGNOSES: -activity of tremor and shaking could be seizure disorder. -Chronic nicotine dependence patient is an active cigarette smoker. -Recreational marijuana use. -Essential hypertension. -Anxiety, depression not otherwise specified. -Interstitial pneumonitis. HOSPTIAL COURSE: 46-year-old female who presented to the emergency department with shaking, and tremors felt to be a possible seizure. Patient was admitted for the same. Home medications reordered, Cymbalta and Klonopin were held in light of patient' s new onset seizure, neurology consulted, CT, EEG and MRI of the brain all ordered. Keppra added to patient's medication regimen. Computed tomography scan revealed no acute intracranial hemorrhage territorial infarct mass midline shift or extra-axial fluid collection, MRI revealed no acute intracranial abnormality. EEG revealed no focal lateralizer electroform abnormalities. Patient had no further seizure activity during the course of her stay, tolerating her diet, ambulatory in the room and samayoa ways. Anxious to go home. Medications reviewed for discharge and on admission patient was on Cymbalta which was held secondary to seizure activity, Klonopin was also held and Neurontin was reduced patient did well while hospitalized and these adjustments and as such discharge medications did not include Cymbalta or Klonopin and did include the decreased dose of Neurontin. She is an active cigarette smoker was counseled regarding the importance of smoking cessation patient verbalized understanding. Patient was also counseled about marijuana use and again verbalized understanding. Patient and significant other counseled regarding patient's not being allowed to drive for at least 6 months and must be evaluated outpatient by neurologist. Both verbalized understanding. PHYSICAL EXAM: CARDIOVASCULAR: First and second sound noted no edema RESPIRATORY: Respiratory effort normal lung sounds diminished bilaterally NEUROLOGIC: Gross motor movement intact, no facial asymmetry power and sensation grossly intact PSYCHIATRY: Alert and oriented 3 mood and affect appropriate for the situation. Patient was seen and examined by nurse practitioner Elizabeth Carmona in all elements of the case discussed with attending Dr. Soto DISPOSITION: Home to the care of her significant other Patient Condition at Discharge: Stable Plan - Discharge Summary New Discharge Prescriptions: New Cefuroxime [Ceftin] 500 mg PO BID #4 tab levETIRAcetam [Keppra] 1,000 mg PO BID #60 tab Nicotine 21Mg/24Hr Patch [Habitrol] 1 patch TRANSDERM DAILY #21 patch Continue Ipratropium/Albuterol Sulfate [Combivent Respimat Inhaler] 1 puff INHALATION RT-Q6H PRN PRN Reason: Shortness Of Breath ARIPiprazole [Abilify] 2 mg PO HS traMADol HCL [Ultram] 50 - 100 mg PO Q6H PRN PRN Reason: Pain Mirtazapine [Remeron] 15 mg PO HS Meloxicam [Mobic] 15 mg PO DAILY Changed Gabapentin [Neurontin] 400 mg PO TID #0 Discontinued clonazePAM [KlonoPIN] 0.5 mg PO HS DULoxetine HCL [Cymbalta] 90 mg PO DAILY #90 capsule.dr Discharge Medication List Ipratropium/Albuterol Sulfate [Combivent Respimat Inhaler] 1 puff INHALATION RT- Q6H PRN 11/30/15 [History] ARIPiprazole [Abilify] 2 mg PO HS 02/11/16 [History] Meloxicam [Mobic] 15 mg PO DAILY 01/06/17 [History] Mirtazapine [Remeron] 15 mg PO HS 01/06/17 [History] traMADol HCL [Ultram] 50 - 100 mg PO Q6H PRN 01/06/17 [History] Cefuroxime [Ceftin] 500 mg PO BID #4 tab 01/10/17 [Rx] Gabapentin [Neurontin] 400 mg PO TID #0 01/10/17 [Rx] Nicotine 21Mg/24Hr Patch [Habitrol] 1 patch TRANSDERM DAILY #21 patch 01/10/17 [ Rx] levETIRAcetam [Keppra] 1,000 mg PO BID #60 tab 01/10/17 [Rx] Follow up Appointment(s)/Referral(s): Bob Odom DO [Primary Care Provider] - 01/17/17 2:15 pm Vashti Stewart MD [STAFF PHYSICIAN] - 02/02/17 2:00 pm Patient Instructions/Handouts: Cefuroxime (By mouth), Nicotine (Absorbed through the skin), Levetiracetam (By mouth), New-Onset Seizure in Adults (DC) Activity/Diet/Wound Care/Special Instructions: no driving till further notice Discharge Disposition: HOME SELF-CARE
--- NOTE | 2017-01-10 21:39 | DS ---
DISCHARGE SUMMARY DATE OF SERVICE: 01/10/17. ATTENDING NOTE: The patient was seen and examined by me. I discussed with nurse practitioner, Ms. Carmona. Patient admitted with diagnosis of seizure disorder and gestational pneumonitis, counseled against smoking. The patient will be discharged home on Keppra. Some medications were adjusted. Counseled against smoking. PHYSICAL EXAMINATION: LUNGS: Decreased breath sounds. Psych AO x3. No driving patient informed. Follow up is arranged. MMODL / IJN: [id number] /
== END 2017-01-10 12:25 | disposition home or self-care (01) | DRG 100 ==
LOC: EC 23:34 → 5MS5E 01-06 03:59
PROVIDERS: ADMIT Hospitalist; ATTEND Hospitalist
DX: G40.909 Epilepsy, unspecified, not intractable, without status epilepticus (principal); A41.9 Sepsis, unspecified organism; J84.89 Other specified interstitial pulmonary diseases; J44.0 Chronic obstructive pulmonary disease with (acute) lower respiratory infection; F12.90 Cannabis use, unspecified, uncomplicated; F17.210 Nicotine dependence, cigarettes, uncomplicated; F41.8 Other specified anxiety disorders; I10 Essential (primary) hypertension; I25.10 Atherosclerotic heart disease of native coronary artery without angina pectoris; I73.9 Peripheral vascular disease, unspecified; Z79.1 Long term (current) use of non-steroidal anti-inflammatories (NSAID); Z79.899 Other long term (current) drug therapy; Z80.0 Family history of malignant neoplasm of digestive organs; Z82.5 Family history of asthma and other chronic lower respiratory diseases; M54.9 Dorsalgia, unspecified; G89.29 Other chronic pain; G43.909 Migraine, unspecified, not intractable, without status migrainosus; F32.9 Major depressive disorder, single episode, unspecified
CPT/HCPCS: 36415; 70450; 70551; 71010; 80048; 80053; 80177; 80306; 80320; 81003; 82550; 82553; 83520; 83735; 84100; 84484; 85025; 85610; 85730; 87040; 87086; 95816; 96361; 96365; 96375; 99285

== ENCOUNTER 2017-01-26 14:49 | Observation (INO) | payer OTHER ==
[2017-01-26] MEDS ORDERED: LORazepam 2 MG/ML INJ IV STA (15:23)
[2017-01-26] MEDS ORDERED: SODIUM CHLORIDE 0.9% 1,000 ML IV STA (15:23)
[2017-01-26] MEDS ORDERED: levETIRAcetam IV 1,000 MG in SALINE 1 100ML.BAG IVPB STA (15:23)
--- NOTE | 2017-01-26 15:27 | ED ---
Seizure HPI - General Chief Complaint: Seizure Stated Complaint: seizure Time Seen by Provider: 01/26/17 15:05 Source: family Mode of arrival: ambulatory - History of Present Illness Initial Comments: 46 years old female has a history of seizure disorder she ran out of her medications him a she is not sure which medication she rents out her son is with her he believes that she ran out of her seizure medication. She was coming to the ER to get a refill on her seizure medications cc in the waiting area are somewhat with her he said he eased her down to thefloor . She denies any headaches no chest pain no shortness of breath no abdominal pain no frequency urgency dysuria no signs of CVA or TIA - Related Data Home Medications Medication Instructions Recorded Confirmed Ipratropium/Albuterol Sulfate 1 puff INHALATION RT-Q6H PRN 11/30/15 01/26/17 [Combivent Respimat Inhaler] Meloxicam [Mobic] 15 mg PO DAILY 01/06/17 01/26/17 Mirtazapine [Remeron] 15 mg PO HS 01/06/17 01/26/17 traMADol HCL [Ultram] 50 - 100 mg PO Q6H PRN 01/06/17 01/26/17 DULoxetine HCL [Cymbalta] 90 mg PO DAILY 01/26/17 01/26/17 Gabapentin [Neurontin] 800 mg PO TID 01/26/17 01/26/17 Nortriptyline [Pamelor] 25 mg PO HS 01/26/17 01/26/17 clonazePAM [KlonoPIN] 0.5 mg PO HS 01/26/17 01/26/17 Previous Rx's Medication Instructions Recorded Nicotine 21Mg/24Hr Patch [Habitrol] 1 patch TRANSDERM DAILY #21 patch 01/10/17 levETIRAcetam [Keppra] 1,000 mg PO BID #60 tab 01/10/17 Allergies Allergy/AdvReac Type Severity Reaction Status Date / Time No Known Allergies Allergy Verified 01/26/17 14:56 Review of Systems ROS Statement: Those systems with pertinent positive or pertinent negative responses have been documented in the HPI. ROS Other: All systems not noted in ROS Statement are negative. Past Medical History Past Medical History: Chest Pain / Angina, Hypertension, Neurologic Disorder Additional Past Medical History / Comment(s): chronic back pain, headaches, rapid heart beat, anxiety, seizure 2015 in [place], CAD, migraines History of Any Multi-Drug Resistant Organisms: None Reported Past Surgical History: Adenoidectomy, Orthopedic Surgery, Tonsillectomy, Tubal Ligation, Uterine Ablation Additional Past Surgical History / Comment(s): novasure implant, left ankle ORIF , oral surgery T + A, tubal ligation, open reduction and internal fixation of left ankle. Past Anesthesia/Blood Transfusion Reactions: No Reported Reaction Past Psychological History: Anxiety, Depression Smoking Status: Current every day smoker Past Alcohol Use History: None Reported Past Drug Use History: Marijuana - Past Family History Mother Family Medical History: COPD Sister(s) Family Medical History: No Reported History Brother(s) Family Medical History: Cancer Son(s) Family Medical History: No Reported History father Family Medical History: Cancer Additional Family Medical History / Comment(s): colon ca General Exam - General Exam Comments Initial Comments: General: The patient is awake and alert, in no distress, and does not appear acutely ill. She has is 15 Skin: Skin is warm and dry and no rashes or lesions are noted. Eye: Pupils are equal, round and reactive to light, extra-ocular movements are intact; there is normal conjunctiva bilaterally. Ears, nose, mouth and throat: There are moist mucous membranes and no oral lesions. Neck: The neck is supple, there is no focal tenderness over the cervical spine . Examination of the scalp did not reveal any hematoma no ecchymosis or laceration noticed Cardiovascular: There is a regular rate and rhythm. No murmur, rub or gallop is appreciated. Respiratory: To auscultation bilateral, no wheezing no rhonchi no distress respiratory alvarez noticed Gastrointestinal: Soft, non-distended, non-tender abdomen without masses or organomegaly noted. There is no rebound or guarding present. Bowel sounds are unremarkable. Back: There is no tenderness to palpation in the midline. There is no obvious deformity. Musculoskeletal: Normal ROM, no tenderness, There is no pedal edema. There is no calf tenderness or swelling. No cords were appreciated. Neurological: CN II-XII intact, Cranial nerves III through XII are intact. There are no obvious motor or sensory deficits. Coordination appears grossly intact. Speech is normal. Psychiatric: Cooperative, appropriate mood & affect, normal judgment. Course Vital Signs 01/26/17 14:53 Temperature 97.0 F L Pulse Rate 112 H Respiratory 22 Rate Blood Pressure 152/80 O2 Sat by Pulse 97 Oximetry EKG is normal sinus rhythm medical rate is 96 CT interval is 152 QRS duration is 90 QT/QTc is 390/492 review of this EKG does not reveal any ST elevation or ST depression Medical Decision Making - Lab Data Result diagrams: 01/26/17 15:00 01/26/17 15:00 Lab Results 01/26/17 01/26/17 Range/Units 15:00 15:00 WBC 15.6 H (3.8-10.6) k/uL RBC 4.99 (3.80-5.40) m/uL Hgb 16.0 (11.4-16.0) gm/dL Hct 50.9 H (34.0-46.0) % MCV 102.0 H (80.0-100.0) fL MCH 32.0 (25.0-35.0) pg MCHC 31.4 (31.0-37.0) g/dL RDW 13.7 (11.5-15.5) % Plt Count 324 (150-450) k/uL Neutrophils % 69 % Lymphocytes % 23 % Monocytes % 5 % Eosinophils % 0 % Basophils % 1 % Neutrophils # 10.8 H (1.3-7.7) k/uL Lymphocytes # 3.6 (1.0-4.8) k/uL Monocytes # 0.8 (0-1.0) k/uL Eosinophils # 0.0 (0-0.7) k/uL Basophils # 0.1 (0-0.2) k/uL Hypochromasia Marked Macrocytosis Slight Sodium 148 H (137-145) mmol/L Potassium 4.0 (3.5-5.1) mmol/L Chloride 106 (98-107) mmol/L Carbon Dioxide 15 L (22-30) mmol/L Anion Gap 27 mmol/L BUN 8 (7-17) mg/dL Creatinine 0.70 (0.52-1.04) mg/dL Est GFR (MDRD) Af Amer >60 (>60 ml/min/1.73 sqM) Est GFR (MDRD) Non-Af >60 (>60 ml/min/1.73 sqM) Glucose 115 H (74-99) mg/dL Calcium 10.3 H (8.4-10.2) mg/dL Total Bilirubin 0.4 (0.2-1.3) mg/dL AST 28 (14-36) U/L ALT 16 (9-52) U/L Alkaline Phosphatase 112 (38-126) U/L Total Protein 8.8 H (6.3-8.2) g/dL Albumin 5.4 H (3.5-5.0) g/dL Disposition Clinical Impression: Seizure disorder, Metabolic acidosis, Leukocytosis Disposition: ADMITTED IP TO THIS [facility] Condition: Good Referrals: Bob Odom DO [Primary Care Provider] - 1-2 days
[2017-01-26 15:43] LABS: Basophils # (A) 0.1 k/uL (0-0.2); Basophils % (A) 1 %; CH 30.4; CHCM 29.9; Eosinophils % (A) 0 %; HCT 50.9 % (34.0-46.0); Hypochromasia Marked; Luc # (Auto) 0.31; Luc % (Auto) 2; Lymphocytes # (A) 3.6 k/uL (1.0-4.8); Lymphocytes % (A) 23 %; MCHC 31.4 g/dL (31.0-37.0); Macrocytosis Slight; Monocytes # (A) 0.8 k/uL (0-1.0); Monocytes % (A) 5 %; Neutrophils # (A) 10.8 k/uL (1.3-7.7); Neutrophils % (A) 69 %; RBC 4.99 m/uL (3.80-5.40); RDW 13.7 % (11.5-15.5); WBC 15.6 k/uL (3.8-10.6); WBC (Perox) 15.75
[2017-01-26 15:53] LABS: ALT 16 U/L (9-52); AST 28 U/L (14-36); Alkaline Phosphatase 112 U/L (38-126); Anion Gap 27 mmol/L; Blood Urea Nitrogen 8 mg/dL (7-17); Calcium 10.3 mg/dL (8.4-10.2); Carbon Dioxide 15 mmol/L (22-30); Chloride 106 mmol/L (98-107); Glucose 115 mg/dL (74-99); Non-African American GFR(MDRD) >60 (>60 ml/min/1.73 sqM); Sodium 148 mmol/L (137-145); Total Bilirubin 0.4 mg/dL (0.2-1.3); Total Protein 8.8 g/dL (6.3-8.2)
--- NOTE | 2017-01-26 16:27 | CT ---
EXAMINATION TYPE: CT brain wo con DATE OF EXAM: 01/26/2017 COMPARISON: previous head ct 01/06/2017 HISTORY: Seizures today, history of seizures. CT DLP: 1121.00 mGycm. Automated Exposure Control for Dose Reduction was Utilized. TECHNIQUE: CT scan of the head is performed without contrast. FINDINGS: There is no acute intracranial hemorrhage, mass effect, or midline shift identified. The ventricles and sulci are within normal limits in size. The globes are intact and the visualized sin uses are clear. IMPRESSION: No acute intracranial hemorrhage, mass effect, or midline shift is seen.
[2017-01-26] MEDS ORDERED: SODIUM CHLORIDE 0.9% 1,000 ML IV ONE (16:46)
[2017-01-26] MEDS ORDERED: LORazepam 1 MG TAB NG-TUBE PRN (16:50)
[2017-01-26] MEDS ORDERED: NALOXONE 0.4 MG/ML 1 ML VIAL IV PRN (16:50)
[2017-01-26] MEDS ORDERED: ONDANSETRON 4 MG/2 ML VIAL IVP PRN (16:50)
[2017-01-26] MEDS ORDERED: MORPHINE SULFATE 10 MG/ML SYRINGE IV PRN (16:50)
[2017-01-26] MEDS ORDERED: IPRATROPIUM-ALBUTEROL 3 ML NEB INHALATION PRN (16:58)
[2017-01-26] MEDS ORDERED: LORazepam 2 MG/ML INJ IV PRN (16:59)
[2017-01-26] MEDS ORDERED: cefTRIAXone 2,000 MG in SODIUM CHLORIDE 0.9% 100 ML IVPB ONE (17:00)
--- NOTE | 2017-01-26 17:34 | XR ---
EXAMINATION TYPE: XR chest 2V DATE OF EXAM: 01/26/2017 COMPARISON: 01/06/2017 HISTORY: Chest pain TECHNIQUE: Frontal and lateral views of the chest are obtained. FINDINGS: There is no heart failure nor confluent pneumonic infiltrate. Heart and mediastinum appear normal. Costophrenic angles are clear. Bony thorax is intact. IMPRESSION: Normal chest. There is improved inspiration compared to last exam.
[2017-01-26] MEDS: SODIUM CHLORIDE 0.9% 1,000 ML IV SCH ×2 (17:51→21:21)
[2017-01-26] MEDS: ACETAMINOPHEN TAB 325 MG TAB PO PRN (17:57)
[2017-01-26] MEDS: GABAPENTIN 400 MG CAP PO SCH (20:49)
[2017-01-26] MEDS: NORTRIPTYLINE 25 MG CAP PO SCH (20:49)
[2017-01-26] MEDS: MIRTAZAPINE 15 MG TAB PO SCH (20:49)
[2017-01-26] MEDS: levETIRAcetam 500 MG TAB PO SCH (20:49)
[2017-01-26] MEDS: clonazePAM 0.5 MG TAB PO SCH (21:57)
[2017-01-27] MEDS: levETIRAcetam 500 MG TAB PO SCH ×2 (08:14→22:55)
[2017-01-27] MEDS: DULoxetine HCL 30 MG CAPSULE.DR PO SCH (08:14)
[2017-01-27] MEDS: GABAPENTIN 400 MG CAP PO SCH ×3 (08:14→22:55)
[2017-01-27] MEDS: NICOTINE 21MG/24HR PATCH TRANSDERM SCH (08:20)
[2017-01-27] MEDS ORDERED: MELOXICAM 7.5 MG TAB PO SCH (09:00)
[2017-01-27 10:29] VITALS: BMI 16.8
--- NOTE | 2017-01-27 12:30 | P.HPIM ---
History of Present Illness 46-year-old female with history of seizure disorder doesn't take her antiseizure medications at home came in with complaints of seizure patient has postictal confusion did not have any tongue biting are round bur loss of bowel or bladder incontinence patient's episode was witnessed by the son was not available when I saw the patient but I get the history from the patient as well as the family member, Keppra level is being obtained area did patient is also on tramadol which may have contributed to her seizures as well. Patient denied any fever, chills, nausea, vomiting patient does have anion gap metabolic acidosis may be related to lactic acidosis, patient will be continued on IV fluids with half-normal saline at 100 mL per hour lactic acid levels will be obtained. Patient denied any fever chills cough runny nose dysuria. Review of Systems REVIEW OF SYSTEMS: CONSTITUTIONAL: No fever, no malaise, no fatigue. HEENT: No recent visual problems or hearing problems. Denied any sore throat. CARDIOVASCULAR: No chest pain, orthopnea, PND, no palpitations, no syncope. PULMONARY: No shortness of breath, no cough, no hemoptysis. GASTROINTESTINAL: No diarrhea, no nausea, no vomiting, no abdominal pain. Normoactive bowel sounds. NEUROLOGICAL: No headaches, no weakness, no numbness. HEMATOLOGICAL: Denies any bleeding or petechiae. GENITOURINARY: Denies any burning micturition, frequency, or urgency. MUSCULOSKELETAL/RHEUMATOLOGICAL: Denies any joint pain, swelling, or any muscle pain. ENDOCRINE: Denies any polyuria or polydipsia. The rest of the 14-point review of systems is negative. Past Medical History Past Medical History: Chest Pain / Angina, Hypertension, Neurologic Disorder Additional Past Medical History / Comment(s): chronic back pain, headaches, rapid heart beat, anxiety, seizure 2015 in [place], CAD, migraines History of Any Multi-Drug Resistant Organisms: None Reported Past Surgical History: Adenoidectomy, Orthopedic Surgery, Tonsillectomy, Tubal Ligation, Uterine Ablation Additional Past Surgical History / Comment(s): novasure implant, left ankle ORIF , oral surgery T + A, tubal ligation, open reduction and internal fixation of left ankle. Past Anesthesia/Blood Transfusion Reactions: No Reported Reaction Smoking Status: Current every day smoker - Past Family History Mother Family Medical History: COPD Sister(s) Family Medical History: No Reported History Brother(s) Family Medical History: Cancer Son(s) Family Medical History: No Reported History father Family Medical History: Cancer Additional Family Medical History / Comment(s): colon ca Medications and Allergies Home Medications Medication Instructions Recorded Confirmed Type Ipratropium/Albuterol Sulfate 1 puff INHALATION RT-Q6H PRN 11/30/15 01/26/17 History [Combivent Respimat Inhaler] Meloxicam [Mobic] 15 mg PO DAILY 01/06/17 01/26/17 History Mirtazapine [Remeron] 15 mg PO HS 01/06/17 01/26/17 History traMADol HCL [Ultram] 50 - 100 mg PO Q6H PRN 01/06/17 01/26/17 History Nicotine 21Mg/24Hr Patch [Habitrol] 1 patch TRANSDERM DAILY #21 patch 01/10/17 01/26/17 Rx levETIRAcetam [Keppra] 1,000 mg PO BID #60 tab 01/10/17 01/26/17 Rx DULoxetine HCL [Cymbalta] 90 mg PO DAILY 01/26/17 01/26/17 History Gabapentin [Neurontin] 800 mg PO TID 01/26/17 01/26/17 History Nortriptyline [Pamelor] 25 mg PO HS 01/26/17 01/26/17 History clonazePAM [KlonoPIN] 0.5 mg PO HS 01/26/17 01/26/17 History Allergies Allergy/AdvReac Type Severity Reaction Status Date / Time No Known Allergies Allergy Verified 01/26/17 14:56 Physical Exam Vitals: Vital Signs Temp Pulse Pulse Resp BP BP Pulse Ox 01/27/17 08:00 93 18 01/27/17 07:00 98.2 F 93 18 125/77 93 L 01/26/17 23:00 97.7 F 94 17 112/69 96 01/26/17 17:16 101 H 17 122/78 96 01/26/17 14:53 97.0 F L 112 H 22 152/80 97 Intake and Output 01/26/17 01/27/17 01/27/17 22:59 06:59 14:59 Intake Total 1700 Output Total 600 Balance 1700 -600 Intake: Amount of Fluid Infused ( 1000 ml) Intake, IV Titration 600 Amount Sodium Chloride 0.9% 1, 500 000 ml @ 100 mls/hr IV . Q10H [facility] Rx#:[id number] cefTRIAXone 2,000 mg In 100 Sodium Chloride 0.9% 100 ml @ 100 mls/hr IVPB ONCE ONE Rx#:[id number] Oral 100 Output: Urine 600 Other: Voiding Method Toilet Toilet Weight 44.452 kg Patient Weight 01/28/17 06:59 Weight 44.452 kg PHYSICAL EXAMINATION: GENERAL: The patient is alert and oriented x3, not in any acute distress. Well developed, well nourished. HEENT: Pupils are round and equally reacting to light. EOMI. No scleral icterus. No conjunctival pallor. Normocephalic, atraumatic. No pharyngeal erythema. No thyromegaly. CARDIOVASCULAR: S1 and S2 present. No murmurs, rubs, or gallops. PULMONARY: Chest is clear to auscultation, no wheezing or crackles. ABDOMEN: Soft, nontender, nondistended, normoactive bowel sounds. No palpable organomegaly. MUSCULOSKELETAL: No joint swelling or deformity. EXTREMITIES: No cyanosis, clubbing, or pedal edema. NEUROLOGICAL: Gross neurological examination did not reveal any focal deficits. SKIN: No rashes. Results CBC & Chem 7: 01/26/17 15:00 01/26/17 15:00 Labs: Abnormal Lab Results - Last 24 Hours (Table) 01/26/17 01/26/17 Range/Units 15:00 15:00 WBC 15.6 H (3.8-10.6) k/uL Hct 50.9 H (34.0-46.0) % MCV 102.0 H (80.0-100.0) fL Neutrophils # 10.8 H (1.3-7.7) k/uL Sodium 148 H (137-145) mmol/L Carbon Dioxide 15 L (22-30) mmol/L Glucose 115 H (74-99) mg/dL Calcium 10.3 H (8.4-10.2) mg/dL Total Protein 8.8 H (6.3-8.2) g/dL Albumin 5.4 H (3.5-5.0) g/dL Microbiology - Last 24 Hours (Table) 01/27/17 03:09 Urine Culture - Preliminary Urine,Voided Assessment and Plan Plan: #1 seizure: Secondary to noncompliance with medications and with contribution from tramadol which will be discontinued antiseizure precautions Her levels IV fluids evaluation by neurology. #2 hypertension #3 anxiety disorder #4 depression #5 smoking history counseling was provided Plan when necessary Ativan for seizures continue with The neurological evaluation sleep and awake EEG lactic acid levels and IV fluids
[2017-01-27] MEDS: ACETAMINOPHEN TAB 325 MG TAB PO PRN (14:40)
[2017-01-27] MEDS: SODIUM CHLORIDE 0.45% 1,000 ML IV SCH ×2 (14:41→22:56)
--- NOTE | 2017-01-27 16:54 | P.CNNES ---
History of Present Illness Consult date: 01/27/17 Requesting physician: Alondra Zaman Reason for Consult: Seizure History of Present Illness: Patient is a pleasant 46-year-old female who is being evaluated by the neurology service on 01/27/2017 per the request of Dr. Zaman for seizures. Patient states she had a tonic clonic seizure witnessed by her son. Son is not available at this point. Patient was brought to [facility] by the son. Patient states she has history of seizures which were diagnosed approximately 18 years ago. Patient states she was not placed on any antiepileptic medication at that time. She has had no seizures and had been on no seizure medication for the past 18 years. About a month ago patient states she had a seizure and came to the hospital for evaluation. Patient had workup done at that time which revealed no acute findings. Patient was sent home on Keppra 1000 mg twice a day. Patient states she has not missed any doses. Patient also takes Neurontin 800 mg 3 times a day for neuropathic pain. Patient states she also has history of chronic back pain for which she was taking Ultram 50 mg 3-4 times daily. Ultram can reduce seizure threshold. Ultram has been discontinued this admission. Labs on admission for hemoglobin 16.0 hematocrit 50.9 WBCs 15.6, sodium 148, potassium 4.0, BUN 8, and creatinine 0.7. Vital signs on admission were temperature 97.0, pulse 112, blood pressure 152/80. At the time of my evaluation, patient's resting comfortably in bed and appears to be in no acute distress. No seizures have been reported since admission. Review of Systems REVIEW OF SYSTEMS: Otherwise unremarkable and noncontributory. Past Medical History Past Medical History: Chest Pain / Angina, Hypertension, Neurologic Disorder Additional Past Medical History / Comment(s): chronic back pain, headaches, rapid heart beat, anxiety, seizure 2015 in 01-06-17, CAD, migraines History of Any Multi-Drug Resistant Organisms: None Reported Past Surgical History: Adenoidectomy, Orthopedic Surgery, Tonsillectomy, Tubal Ligation, Uterine Ablation Additional Past Surgical History / Comment(s): novasure implant, left ankle ORIF , oral surgery T + A, tubal ligation, open reduction and internal fixation of left ankle. Past Anesthesia/Blood Transfusion Reactions: No Reported Reaction Smoking Status: Current every day smoker - Past Family History Mother Family Medical History: COPD Sister(s) Family Medical History: No Reported History Brother(s) Family Medical History: Cancer Son(s) Family Medical History: No Reported History father Family Medical History: Cancer Additional Family Medical History / Comment(s): colon ca Medications and Allergies Home Medications Medication Instructions Recorded Confirmed Type Ipratropium/Albuterol Sulfate 1 puff INHALATION RT-Q6H PRN 11/30/15 01/26/17 History [Combivent Respimat Inhaler] Meloxicam [Mobic] 15 mg PO DAILY 01/06/17 01/26/17 History Mirtazapine [Remeron] 15 mg PO HS 01/06/17 01/26/17 History traMADol HCL [Ultram] 50 - 100 mg PO Q6H PRN 01/06/17 01/26/17 History Nicotine 21Mg/24Hr Patch [Habitrol] 1 patch TRANSDERM DAILY #21 patch 01/10/17 01/26/17 Rx levETIRAcetam [Keppra] 1,000 mg PO BID #60 tab 01/10/17 01/26/17 Rx DULoxetine HCL [Cymbalta] 90 mg PO DAILY 01/26/17 01/26/17 History Gabapentin [Neurontin] 800 mg PO TID 01/26/17 01/26/17 History Nortriptyline [Pamelor] 25 mg PO HS 01/26/17 01/26/17 History clonazePAM [KlonoPIN] 0.5 mg PO HS 01/26/17 01/26/17 History Allergies Allergy/AdvReac Type Severity Reaction Status Date / Time No Known Allergies Allergy Verified 01/26/17 14:56 Physical Examination - Vital Signs Vital Signs: Vital Signs Temp Pulse Pulse Resp BP BP Pulse Ox 01/27/17 15:59 18 01/27/17 08:00 93 18 01/27/17 07:00 98.2 F 93 18 125/77 93 L 01/26/17 23:00 97.7 F 94 17 112/69 96 01/26/17 17:16 101 H 17 122/78 96 Intake and Output 01/27/17 01/27/17 01/27/17 06:59 14:59 22:59 Intake Total 100 Output Total 600 Balance -600 100 Intake: Intake, IV Titration 100 Amount Sodium Chloride 0.45% 1, 100 000 ml @ 100 mls/hr IV . Q10H [facility] Rx#:[id number] Output: Urine 600 Other: Voiding Method Toilet Toilet Toilet Weight 44.452 kg Patient Weight 01/28/17 06:59 Weight 44.452 kg PHYSICAL EXAM: GENERAL APPEARANCE: Patient is a well-developed, female who appears to be in no acute distress. HEENT: Normocephalic, atraumatic, no facial asymmetry is seen. Neck is supple with no masses felt. CARDIOVASCULAR: Regular rate and rhythm. ABDOMEN: Nontender, nondistended. EXTREMITIES: Show no edema or clubbing. NEUROLOGICAL EXAM: Patient is awake, alert, and oriented 3. Speech and language are normal. Strength is full in all 4 extremities. Sensory exam to light touch is normal in all 4 extremities. No facial asymmetry is seen on cranial nerve testing. No tremors or seizure-like activity is noted. Results - Laboratory Findings CBC and BMP: 01/26/17 15:00 01/26/17 15:00 Abnormal Lab Findings: Abnormal Labs 01/26/17 01/26/17 01/27/17 15:00 15:00 03:09 WBC 15.6 H Hct 50.9 H MCV 102.0 H Neutrophils # 10.8 H Sodium 148 H Carbon Dioxide 15 L Glucose 115 H Calcium 10.3 H Total Protein 8.8 H Albumin 5.4 H U Cannabinoids Screen Positive H Assessment and Plan Plan: Impression: 1. Seizures 2. Noncompliance with medication 3. History of depression 4. Hypertension 5. Tobacco use Recommendation: It does appear patient was recently placed on antiepileptic medication. She came to the hospital with breakthrough seizure. Patient had been on Ultram for chronic back pain which has been discontinued. As you know, Ultram reduced seizure threshold. It is likely her breakthrough seizure was due to the Ultram. No seizure activity since admission. EEG was done and results are pending. Computed tomography scan was negative for any contributing etiology. Recent MRI was done within the last month which was negative for any acute process. Keppra level is pending. I recommend continue current dose of Keppra 1000 mg twice a day and Neurontin 800 mg 3 times a day. Continue neurological checks. Continue seizure precautions. Continue current medical management. I will continue to follow with you. Further recommendations to follow. Thank you for allowing me to participate in the care of your patient. Feel free to call with any questions or concerns. I performed an examination of the patient and discussed the management with the GEOSCIENCE SPECIALIST. I have reviewed the GEOSCIENCE SPECIALIST notes and agree with the findings and plan of care.
[2017-01-27] MEDS: SODIUM CHLORIDE 0.9% 1,000 ML IV SCH (22:47)
[2017-01-27] MEDS: MIRTAZAPINE 15 MG TAB PO SCH (22:55)
[2017-01-27] MEDS: NORTRIPTYLINE 25 MG CAP PO SCH (22:55)
[2017-01-27] MEDS: clonazePAM 0.5 MG TAB PO SCH (22:56)
[2017-01-27 23:17] VITALS: RESP 16
[2017-01-28] MEDS: SODIUM CHLORIDE 0.9% 1,000 ML IV SCH ×2 (00:24→09:07)
[2017-01-28 08:21] VITALS: BP 130/81; PULSE 78; TEMP 97.8
[2017-01-28] MEDS: SODIUM CHLORIDE 0.45% 1,000 ML IV SCH (08:22)
[2017-01-28] MEDS: NICOTINE 21MG/24HR PATCH TRANSDERM SCH (08:24)
[2017-01-28] MEDS: GABAPENTIN 400 MG CAP PO SCH (08:25)
[2017-01-28] MEDS: DULoxetine HCL 30 MG CAPSULE.DR PO SCH (08:25)
[2017-01-28] MEDS: levETIRAcetam 500 MG TAB PO SCH (08:26)
--- NOTE | 2017-01-28 11:30 | P.PN ---
Subjective Progress Note Date: 01/28/17 Patient is a pleasant 46-year-old female who is being followed by the neurology service for seizures. Patient presented to [facility] after having a witnessed seizure by her son. Patient states she does not have a history of seizures however, she does report having a seizure approximately 18 years ago. At that time, she was not placed on any antiepileptic medication. Patient did present approximately a month ago with seizure activity and was placed on Keppra 1000 mg twice a day. Patient states she has not missed any doses. According to family patient is not compliant with her medication. Patient has been on Ultram for many years for chronic back pain, hip pain and ankle pain. Ultram can reduce seizure threshold. Ultram has been discontinued and patient has not had any recurrent seizures. At the time of my evaluation, patient is resting comfortably in bed and appears to be in no acute distress. Objective - Vital Signs Vital signs: Vital Signs Temp 97.8 F 01/28/17 08:19 Pulse 78 01/28/17 11:06 Resp 16 01/28/17 11:06 BP 130/81 01/28/17 08:19 Pulse Ox 98 01/28/17 08:19 Intake & Output 01/27/17 01/28/17 01/28/17 18:59 06:59 18:59 Intake Total 100 460 Output Total 120 Balance 100 340 Weight 44.452 kg 44.452 kg Intake: Intake, IV Titration 100 Amount Sodium Chloride 0.45% 1, 100 000 ml @ 100 mls/hr IV . Q10H COUNTS INCLUDE 234 BEDS AT [facility] Rx#:[id number] Oral 460 Output: Urine 120 Other: Voiding Method Toilet Toilet Toilet # Voids 2 - Exam PHYSICAL EXAM: GENERAL APPEARANCE: Patient is a well-developed, female who appears to be in no acute distress. HEENT: Normocephalic, atraumatic, no facial asymmetry is seen. Neck is supple with no masses felt. CARDIOVASCULAR: Regular rate and rhythm. ABDOMEN: Nontender, nondistended. EXTREMITIES: Show no edema or clubbing. NEUROLOGICAL EXAM: Patient is awake, alert, and oriented 3. Speech and language are normal. No facial asymmetry is seen on cranial nerve testing. Strength is full in all 4 extremities. Sensory exam to light touch is normal in all 4 extremities. No seizures or tremors were noted. - Labs CBC & Chem 7: 01/26/17 15:00 01/26/17 15:00 Labs: Abnormal Lab Results - Last 24 Hours (Table) 01/27/17 Range/Units 03:09 U Cannabinoids Screen Positive H (Negative) ng/mL Microbiology - Last 24 Hours (Table) 01/26/17 17:10 Blood Culture - Preliminary Blood No Growth after 24 hours 01/27/17 03:09 Urine Culture - Preliminary Urine,Voided Assessment and Plan Plan: Impression: 1. Seizures 2. Noncompliance with medication 3. History of depression 4. Hypertension 5. Tobacco use Recommendation: It does appear patient was recently placed on antiepileptic medication. She came to the hospital with breakthrough seizure. Patient had been on Ultram for chronic back pain, ankle pain, and hip pain which has been discontinued. As you know, Ultram can reduce seizure threshold. It is likely her breakthrough seizure was due to the Ultram. No seizure activity since admission. EEG was done and shows evidence of dysregulation consistent with reduced seizure threshold. Computed tomography scan was negative for any contributing etiology. Recent MRI was done within the last month which was negative for any acute process. Keppra level is pending. I recommend continuing current dose of Keppra 1000 mg twice a day and Neurontin 800 mg 3 times a day. Continue neurological checks. Continue seizure precautions. Continue current medical management. Patient is stable from a neurological standpoint for discharge. She can follow up in our office in 2-3 weeks. I will continue to follow with you on an as-needed basis. Feel free to call with any questions or concerns. I performed an examination of the patient and discussed the management with the SANITARY PLUMBER. I have reviewed the SANITARY PLUMBER notes and agree with the findings and plan of care.
[2017-01-28] MEDS ORDERED: ACETAMINOPHEN TAB 325 MG TAB PO PRN (11:59)
--- NOTE | 2017-01-28 12:23 | P.DS ---
Providers Date of admission: 01/26/17 16:50 Expected date of discharge: 01/28/17 Attending physician: Alondra Tellez Consults: 01/26/17 16:50 Consult Physician Stat Consulting Provider: Zuly Waters Consult Reason/Comments: Seizure disorder Do you want consulting provider notified?: Yes Primary care physician: [facility] Course: Final Diagnoses: #1 seizure: Secondary to noncompliance with medications and with contribution from tramadol which has been discontinued #2 hypertension #3 anxiety disorder #4 depression #5 smoking history counseling was provided Hospital course this is a 46-year-old female admitted with history of seizure disorder doesn't take her antiseizure medications at home came in with complaints of seizure patient has postictal confusion. Keppra level obtained, pending. Patient was also on tramadol which may have contributed to her seizures as well. Maintained on IV fluid hydration,prn ativan. Evaluated by neurology. Per Her significant other at bedside, patient is noncompliant with taking her anticonvulsant medication. EEG reported decreased seizure threshold. Keppra resumed. No recurrent seizures. Significant clinical improvement. Cleared by neurology for discharge. Patient being discharged home in a stable condition with guarded prognosis. Seizure precautions including no driving discussed with both patient and significant other at bedside. Both verbalized understanding and agreement with. The impression and plan of care has been dictated as directed. : I performed a history and examination of this patient, discussed the same with the dictator. I agree with the dictator's note ,documented as a scribe. Any additional findings or plans will be noted. Patient Condition at Discharge: Stable Plan - Discharge Summary Discharge Rx Participant: No New Discharge Prescriptions: New levETIRAcetam [Keppra] 1,000 mg PO BID #120 tab Continue Ipratropium/Albuterol Sulfate [Combivent Respimat Inhaler] 1 puff INHALATION RT-Q6H PRN PRN Reason: Shortness Of Breath Mirtazapine [Remeron] 15 mg PO HS Nicotine 21Mg/24Hr Patch [Habitrol] 1 patch TRANSDERM DAILY #21 patch clonazePAM [KlonoPIN] 0.5 mg PO HS Nortriptyline [Pamelor] 25 mg PO HS Gabapentin [Neurontin] 800 mg PO TID DULoxetine HCL [Cymbalta] 90 mg PO DAILY Discontinued traMADol HCL [Ultram] 50 - 100 mg PO Q6H PRN PRN Reason: Pain Meloxicam [Mobic] 15 mg PO DAILY Discharge Medication List Ipratropium/Albuterol Sulfate [Combivent Respimat Inhaler] 1 puff INHALATION RT- Q6H PRN 11/30/15 [History] Mirtazapine [Remeron] 15 mg PO HS 01/06/17 [History] Nicotine 21Mg/24Hr Patch [Habitrol] 1 patch TRANSDERM DAILY #21 patch 01/10/17 [ Rx] DULoxetine HCL [Cymbalta] 90 mg PO DAILY 01/26/17 [History] Gabapentin [Neurontin] 800 mg PO TID 01/26/17 [History] Nortriptyline [Pamelor] 25 mg PO HS 01/26/17 [History] clonazePAM [KlonoPIN] 0.5 mg PO HS 01/26/17 [History] levETIRAcetam [Keppra] 1,000 mg PO BID #120 tab 01/28/17 [Rx] Follow up Appointment(s)/Referral(s): Bob Odom DO [Primary Care Provider] - 3 Days Zuly Waters MD [STAFF PHYSICIAN] - 2 Weeks Activity/Diet/Wound Care/Special Instructions: Seizure precautions, no driving as per [place] state law NO ULTRAM.
--- NOTE | 2017-02-10 10:32 | EEG ---
ELECTROENCEPHALOGRAM REPORT DATE OF SERVICE: 01/27/2017 REASON FOR TESTING: Seizure. CURRENT ANTIEPILEPTIC MEDICATIONS: Keppra and Neurontin. DESCRIPTION OF THE PROCEDURE: This EEG was performed using a 21 channel digital electroencephalograph, following international 10-20 system. DESCRIPTION OF THE RECORDING: From the beginning of the tracing, with patient's eyes closed, the background rhythm was mostly consisting of 8 Hz alpha frequency in the posterior occipital leads. No obvious asymmetry is seen. Photic stimulation was performed with a minimal driving response seen. No pathological waves were elicited. Hyperventilation was performed with a minimal buildup of amplitude seen. Again, no pathological waves were elicited. Rare movement artifacts are seen. The patient remains awake throughout the tracing. Rare dysregulation is noticed. No obvious generalized epileptiform activity was seen. INTERPRETATION: This awake EEG is abnormal due to the presence of rare dysregulation. This could be consistent with a reduced seizure threshold. No obvious generalized seizure activity is seen. Clinical correlation is recommended. ADY / WILFRIDO: [id number] /
== END 2017-01-28 12:50 | disposition home or self-care (01) ==
LOC: EC 14:49 → 5MS5E 16:50
PROVIDERS: ADMIT Hospitalist; ATTEND Hospitalist
DX: G40.909 Epilepsy, unspecified, not intractable, without status epilepticus (principal); E87.2 Acidosis; D72.829 Elevated white blood cell count, unspecified; I10 Essential (primary) hypertension; T42.6X6A Underdosing of other antiepileptic and sedative-hypnotic drugs, initial encounter; T40.4X5A Adverse effect of other synthetic narcotics, initial encounter; Z91.14 Patient's other noncompliance with medication regimen; G89.29 Other chronic pain; M54.9 Dorsalgia, unspecified; M25.579 Pain in unspecified ankle and joints of unspecified foot; M25.559 Pain in unspecified hip; F41.9 Anxiety disorder, unspecified; F32.9 Major depressive disorder, single episode, unspecified; F17.200 Nicotine dependence, unspecified, uncomplicated; G43.909 Migraine, unspecified, not intractable, without status migrainosus; R00.0 Tachycardia, unspecified; I25.10 Atherosclerotic heart disease of native coronary artery without angina pectoris; Z82.5 Family history of asthma and other chronic lower respiratory diseases; Z79.1 Long term (current) use of non-steroidal anti-inflammatories (NSAID); Z79.891 Long term (current) use of opiate analgesic; Z79.899 Other long term (current) drug therapy
CPT/HCPCS: 99285; 96375 ×2; 96361 ×5; 96365 ×2; 96366; 36415; 95819; 93005; 80053; 80177; 82607; 83605; 85025; 87040; 80306; 87086; 71020; 70450; G0378 ×3; J2060; J0696; J1953

== ENCOUNTER → 2017-05-04 | Outpatient (CLI) | payer OTHER ==
--- NOTE | 2017-05-04 08:52 | MR ---
EXAMINATION TYPE: MR erynine/lspine wo con DATE OF EXAM: 05/04/2017 COMPARISON: CT cervical spine February 05, 2016 and lumbar spine x-ray January 18, 2013 HISTORY: Low back pain / Cervicalgia per order. Headache with pain or weakness into left arm since 19 97 per patient. Low back pain for years going into bilateral lower extremities per patient. TECHNIQUE: Multiplanar, multisequence imaging of the cervical and lumbar spine are performed without IV contrast. FINDINGS: C-SPINE: FINDINGS: Sagittal images of the cervical spine show the craniocervical junction to remain within nor mal limits. The cervical and upper thoracic spinal cord is normal in course, caliber, and signal. V ertebral alignment is stable and straightened. The vertebral body and intravertebral disk heights ar e normal. Small posterior disc herniation C6-C7 level as seen on sagittal images. The bone marrow sig nal intensity is within normal limits. No significant spurring is noted. Axial images redemonstrates small central disc protrusion C2-C3 level on axial image 45, bilateral ne ural foramina are patent. No significant change from prior CT. Axial images at C3-C4 level are within normal limits. Axial images C4-C5 level show broad-based left paracentral disc protrusion effacing anterolateral the edgar sac on axial image 30, bilateral neural foramina are patent. No significant change from prior CT. Axial images at C5-C6 level are within normal limits. Axial images at C6-C7 level show broad-based right paracentral disc protrusion effacing anterolateral thecal sac, bilateral neural foramina are patent. No significant change from CT. Axial images at C7-T1 level are felt within normal limits. IMPRESSION: Straightening of cervical spine with disc herniation C2-C3, C4-C5, and C6-C7 levels noted as detailed above. No significant change from prior CT. L-SPINE: Sagittal images of the lumbar spine show vertebral body heights and alignment to appear satisfactory. Multilevel disc desiccation is seen but disc space heights are maintained. Posterior disc herniatio n L5-S1 level as seen on sagittal images. The conus medullaris is normal in position and signal endin g at inferior L1 level. The bone marrow signal intensity is within normal limits. No significant spu rring is present. There is a prominent 1.3 cm Tarlov cyst posterior S2 level on sagittal image 7. Axial images show the T12-L1, L1-L2, L2-L3, and L3-L4 levels all to appear within normal limits. Axial images at L4-L5 level show broad-based posterior disc protrusion and mild facet degenerative ch anges bilaterally but spinal canal is preserved and bilateral neural foramina are patent. Axial images at L5-S1 level shows central disc protrusion and mild facet arthropathy bilaterally but spinal canal is preserved and bilateral neural foramina are patent. No suspicious retroperitoneal findings are seen. There is 3 mm round T2 hyperintense lesion centrally liver axial image 26 likely reflecting thin-walled cyst. IMPRESSION: Some mild multilevel degenerative changes in the lower lumbar spine as detailed above.
== END | disposition home or self-care (01) ==
LOC: RADMRIMAIN 07:43
PROVIDERS: ATTEND Psychiatry & Neurology Neurology
DX: M50.21 Other cervical disc displacement, high cervical region (principal); M47.816 Spondylosis without myelopathy or radiculopathy, lumbar region
CPT/HCPCS: 72141; 72148

== ENCOUNTER 2017-06-10 06:05 | Observation (INO) | payer OTHER ==
[2017-06-10] MEDS ORDERED: SODIUM CHLORIDE 0.9% 500 ML IV STA (06:16)
[2017-06-10] MEDS ORDERED: DIPH,PERTUS(ACELL)TETVAC-LF 0.5 ML VIAL IM ONE (06:17)
[2017-06-10] MEDS ORDERED: LORazepam 2 MG/ML INJ IV STA (06:17)
[2017-06-10 06:26] LABS: Basophils # (A) 0.1 k/uL (0-0.2); Basophils % (A) 0 %; Eosinophils # (A) 0.1 k/uL (0-0.7); Eosinophils % (A) 0 %; HCT 43.9 % (34.0-46.0); Lymphocytes % (A) 16 %; MCH 31.3 pg (25.0-35.0); MCHC 31.8 g/dL (31.0-37.0); MCV 98.1 fL (80.0-100.0); Mean Platelet Volume 8.6; Monocytes # (A) 0.7 k/uL (0-1.0); Monocytes % (A) 4 %; Neutrophils # (A) 14.5 k/uL (1.3-7.7); Neutrophils % (A) 78 %; Platelet Count 281 k/uL (150-450); RBC 4.48 m/uL (3.80-5.40); RDW 12.9 % (11.5-15.5); WBC 18.6 k/uL (3.8-10.6)
[2017-06-10 06:36] LABS: ALT 26 U/L (9-52); AST 40 U/L (14-36); Albumin 4.7 g/dL (3.5-5.0); Alkaline Phosphatase 98 U/L (38-126); Anion Gap 21 mmol/L; Blood Urea Nitrogen 11 mg/dL (7-17); Calcium 9.8 mg/dL (8.4-10.2); Carbon Dioxide 19 mmol/L (22-30); Chloride 105 mmol/L (98-107); Glucose 175 mg/dL (74-99); Potassium 3.3 mmol/L (3.5-5.1); Sodium 145 mmol/L (137-145); Total Bilirubin 0.2 mg/dL (0.2-1.3); Total Protein 7.4 g/dL (6.3-8.2)
--- NOTE | 2017-06-10 06:42 | ED ---
Seizure HPI - General Source: EMS Mode of arrival: EMS Limitations: altered mental status - History of Present Illness MD Complaint: possible seizure -: minutes(s) Description of Episode: loss of consciousness, post-event confusion Witnessed: yes - by bystander Seizure History: known seizure disorder Place: home Possible Precipitating Event: head injury <Yaakov Basurto - Last Filed: 06/10/17 06:44> <Emile Pardo - Last Filed: 06/10/17 11:19> - General Chief Complaint: Seizure Stated Complaint: Vomiting Blood Time Seen by Provider: 06/10/17 06:16 - Related Data Home Medications Medication Instructions Recorded Confirmed Ipratropium/Albuterol Sulfate 1 puff INHALATION RT-Q6H PRN 11/30/15 01/26/17 [Combivent Respimat Inhaler] Mirtazapine [Remeron] 15 mg PO HS 01/06/17 01/26/17 DULoxetine HCL [Cymbalta] 90 mg PO DAILY 01/26/17 01/26/17 Gabapentin [Neurontin] 800 mg PO TID 01/26/17 01/26/17 Nortriptyline [Pamelor] 25 mg PO HS 01/26/17 01/26/17 clonazePAM [KlonoPIN] 0.5 mg PO HS 01/26/17 01/26/17 Previous Rx's Medication Instructions Recorded Nicotine 21Mg/24Hr Patch [Habitrol] 1 patch TRANSDERM DAILY #21 patch 01/10/17 levETIRAcetam [Keppra] 1,000 mg PO BID #120 tab 01/28/17 Allergies Allergy/AdvReac Type Severity Reaction Status Date / Time No Known Allergies Allergy Verified 06/10/17 06:16 Review of Systems ROS Other: All systems not noted in ROS Statement are negative. Limitations: ROS unobtainable due to patients medical condition <Yaakov Basurto - Last Filed: 06/10/17 06:44> ROS Other: All systems not noted in ROS Statement are negative. <Emile Pardo - Last Filed: 06/10/17 11:19> ROS Statement: Those systems with pertinent positive or pertinent negative responses have been documented in the HPI. Past Medical History Past Medical History: Chest Pain / Angina, Hypertension, Neurologic Disorder Additional Past Medical History / Comment(s): chronic back pain, headaches, rapid heart beat, anxiety, seizure 2015 in 01-06-17, CAD, migraines History of Any Multi-Drug Resistant Organisms: None Reported Past Surgical History: Adenoidectomy, Orthopedic Surgery, Tonsillectomy, Tubal Ligation, Uterine Ablation Additional Past Surgical History / Comment(s): novasure implant, left ankle ORIF , oral surgery T + A, tubal ligation, open reduction and internal fixation of left ankle. Past Anesthesia/Blood Transfusion Reactions: No Reported Reaction Past Psychological History: Anxiety, Depression Smoking Status: Current every day smoker Past Alcohol Use History: Unable to Obtain Past Drug Use History: Unable to Obtain - Past Family History Mother Family Medical History: COPD Sister(s) Family Medical History: No Reported History Brother(s) Family Medical History: Cancer Son(s) Family Medical History: No Reported History father Family Medical History: Cancer Additional Family Medical History / Comment(s): colon ca <SherineYaakov - Last Filed: 06/10/17 06:44> General Exam Limitations: altered mental status General appearance: other (Patient appears post ictal) Head exam: Present: normocephalic Eye exam: Present: normal appearance. Absent: scleral icterus, conjunctival injection Neck exam: Present: normal inspection. Absent: tenderness Respiratory exam: Present: normal lung sounds bilaterally. Absent: respiratory distress, wheezes, rales, rhonchi, stridor, chest wall tenderness Cardiovascular Exam: Present: tachycardia, normal heart sounds. Absent: systolic murmur, diastolic murmur, rubs, gallop GI/Abdominal exam: Present: soft. Absent: distended, tenderness, guarding, rebound, mass Extremities exam: Present: normal inspection, normal capillary refill. Absent: pedal edema, calf tenderness Back exam: Present: normal inspection. Absent: CVA tenderness (R), CVA tenderness (L), vertebral tenderness Neurological exam: Present: altered, CN II-XII intact, reflexes normal Skin exam: Present: warm, dry, intact, normal color. Absent: rash <SherineYaakov - Last Filed: 06/10/17 06:44> Vital Signs 06/10/17 06/10/17 06/10/17 06:07 07:07 08:00 Temperature 96.3 F L Pulse Rate 131 H 101 H 99 Respiratory 24 16 16 Rate Blood Pressure 155/82 134/84 128/73 O2 Sat by Pulse 96 97 100 Oximetry 06/10/17 09:50 Temperature Pulse Rate 114 H Respiratory 16 Rate Blood Pressure 113/61 O2 Sat by Pulse 98 Oximetry Medical Decision Making - Lab Data Result diagrams: 06/10/17 06:14 - EKG Data -: EKG Interpreted by [facility] EKG shows normal: sinus rhythm, axis (Normal), intervals (Normal), QRS complexes (Incomplete right bundle branch block pattern), ST-T waves (T inversions inferiorly.) Rate: tachycardia (Rate approximately 111 bpm) <Yaakov Basurto - Last Filed: 06/10/17 06:44> - Lab Data Result diagrams: 06/10/17 06:14 06/10/17 06:14 - Radiology Data Radiology results: image reviewed (Computed tomography scan of the brain shows no acute intercranial abnormality. Right maxillary sinus mucosal disease.) <Emile Pardo - Last Filed: 06/10/17 11:19> - Medical Decision Making Patient reevaluated and resting comfortably in bed. Patient does have abrasions to the right side of the face as well as some conjunctival hemorrhage. Pupils are equal and round and reactive to light. Patient is arousable to touch and oriented however overall is very drowsy. Dr. Zaman has been paged for admission for Dr. louise, who covers for Dr. Odom. Patient states her primary care physician is Dr. Odom. Patient states she has been taking her Keppra still. (Emile Pardo) - Lab Data Lab Results 06/10/17 06/10/17 06/10/17 Range/Units 06:14 06:14 06:16 WBC 18.6 H (3.8-10.6) k/uL RBC 4.48 (3.80-5.40) m/uL Hgb 14.0 (11.4-16.0) gm/dL Hct 43.9 (34.0-46.0) % MCV 98.1 (80.0-100.0) fL MCH 31.3 (25.0-35.0) pg MCHC 31.8 (31.0-37.0) g/dL RDW 12.9 (11.5-15.5) % Plt Count 281 (150-450) k/uL Neutrophils % 78 % Lymphocytes % 16 % Monocytes % 4 % Eosinophils % 0 % Basophils % 0 % Neutrophils # 14.5 H (1.3-7.7) k/uL Lymphocytes # 3.0 (1.0-4.8) k/uL Monocytes # 0.7 (0-1.0) k/uL Eosinophils # 0.1 (0-0.7) k/uL Basophils # 0.1 (0-0.2) k/uL Sodium 145 (137-145) mmol/L Potassium 3.3 L (3.5-5.1) mmol/L Chloride 105 (98-107) mmol/L Carbon Dioxide 19 L (22-30) mmol/L Anion Gap 21 mmol/L BUN 11 (7-17) mg/dL Creatinine 0.60 (0.52-1.04) mg/dL Est GFR (CKD-EPI)AfAm >90 (>60 ml/min/1.73 sqM) Est GFR (CKD-EPI)NonAf >90 (>60 ml/min/1.73 sqM) Glucose 175 H (74-99) mg/dL Calcium 9.8 (8.4-10.2) mg/dL Total Bilirubin 0.2 (0.2-1.3) mg/dL AST 40 H (14-36) U/L ALT 26 (9-52) U/L Alkaline Phosphatase 98 (38-126) U/L Troponin I (0.000-0.034) ng/mL Total Protein 7.4 (6.3-8.2) g/dL Albumin 4.7 (3.5-5.0) g/dL Urine Color Yellow Urine Appearance Cloudy H (Clear) Urine pH 5.5 (5.0-8.0) Ur Specific Gregory 1.024 (1.001-1.035) Urine Protein 2+ H (Negative) Urine Glucose (UA) Negative (Negative) Urine Ketones 1+ H (Negative) Urine Blood Negative (Negative) Urine Nitrite Negative (Negative) Urine Bilirubin Negative (Negative) Urine Urobilinogen <2.0 (<2.0) mg/dL Ur Leukocyte Esterase Negative (Negative) Urine RBC 2 (0-5) /hpf Urine WBC 2 (0-5) /hpf Ur Squamous Epith Cells 1 (0-4) /hpf Hyaline Casts 20 H (0-2) /lpf Urine Mucus Occasional H (None) /hpf Urine Opiates Screen Not Detected (NotDetected) Ur Oxycodone Screen Not Detected (NotDetected) Urine Methadone Screen Not Detected (NotDetected) Ur Propoxyphene Screen Not Detected (NotDetected) Ur Barbiturates Screen Not Detected (NotDetected) U Tricyclic Antidepress Not Detected (NotDetected) Ur Phencyclidine Scrn Not Detected (NotDetected) Ur Amphetamines Screen Not Detected (NotDetected) U Methamphetamines Scrn Not Detected (NotDetected) U Benzodiazepines Scrn Not Detected (NotDetected) Urine Cocaine Screen Not Detected (NotDetected) U Marijuana (THC) Screen Detected H (NotDetected) Serum Alcohol mg/dL 06/10/17 06/10/17 Range/Units 06:16 06:16 WBC (3.8-10.6) k/uL RBC (3.80-5.40) m/uL Hgb (11.4-16.0) gm/dL Hct (34.0-46.0) % MCV (80.0-100.0) fL MCH (25.0-35.0) pg MCHC (31.0-37.0) g/dL RDW (11.5-15.5) % Plt Count (150-450) k/uL Neutrophils % % Lymphocytes % % Monocytes % % Eosinophils % % Basophils % % Neutrophils # (1.3-7.7) k/uL Lymphocytes # (1.0-4.8) k/uL Monocytes # (0-1.0) k/uL Eosinophils # (0-0.7) k/uL Basophils # (0-0.2) k/uL Sodium (137-145) mmol/L Potassium (3.5-5.1) mmol/L Chloride (98-107) mmol/L Carbon Dioxide (22-30) mmol/L Anion Gap mmol/L BUN (7-17) mg/dL Creatinine (0.52-1.04) mg/dL Est GFR (CKD-EPI)AfAm (>60 ml/min/1.73 sqM) Est GFR (CKD-EPI)NonAf (>60 ml/min/1.73 sqM) Glucose (74-99) mg/dL Calcium (8.4-10.2) mg/dL Total Bilirubin (0.2-1.3) mg/dL AST (14-36) U/L ALT (9-52) U/L Alkaline Phosphatase (38-126) U/L Troponin I <0.012 (0.000-0.034) ng/mL Total Protein (6.3-8.2) g/dL Albumin (3.5-5.0) g/dL Urine Color Urine Appearance (Clear) Urine pH (5.0-8.0) Ur Specific Gregory (1.001-1.035) Urine Protein (Negative) Urine Glucose (UA) (Negative) Urine Ketones (Negative) Urine Blood (Negative) Urine Nitrite (Negative) Urine Bilirubin (Negative) Urine Urobilinogen (<2.0) mg/dL Ur Leukocyte Esterase (Negative) Urine RBC (0-5) /hpf Urine WBC (0-5) /hpf Ur Squamous Epith Cells (0-4) /hpf Hyaline Casts (0-2) /lpf Urine Mucus (None) /hpf Urine Opiates Screen (NotDetected) Ur Oxycodone Screen (NotDetected) Urine Methadone Screen (NotDetected) Ur Propoxyphene Screen (NotDetected) Ur Barbiturates Screen (NotDetected) U Tricyclic Antidepress (NotDetected) Ur Phencyclidine Scrn (NotDetected) Ur Amphetamines Screen (NotDetected) U Methamphetamines Scrn (NotDetected) U Benzodiazepines Scrn (NotDetected) Urine Cocaine Screen (NotDetected) U Marijuana (THC) Screen (NotDetected) Serum Alcohol <10 mg/dL Disposition <Yaakov Basurto - Last Filed: 06/10/17 06:44> Decision Time: 11:19 <Emile Pardo - Last Filed: 06/10/17 11:19> Clinical Impression: Generalized seizure Disposition: ADMITTED IP TO THIS [facility] Referrals: None,Stated [Primary Care Provider] - 1-2 days
[2017-06-10 06:58] LABS: Appearance,Urine Cloudy (Clear); Bilirubin,Urine Negative (Negative); Blood,Urine Negative (Negative); Color,Urine Yellow; Glucose,Urine (UA) Negative (Negative); Hyaline Casts,Urine 20 /lpf (0-2); Ketones,Urine 1+ (Negative); Leukocyte Esterase,Urine Negative (Negative); Mucus,Urine Occasional /hpf; Nitrite,Urine Negative (Negative); PH, Urine 5.5 (5.0-8.0); Protein,Urine 2+ (Negative); RBC,Urine 2 /hpf (0-5); Specific Gravity,Urine 1.024 (1.001-1.035); Squamous Epithelial Cell,Urine 1 /hpf (0-4); Urobilinogen,Urine <2.0 mg/dL (<2.0); WBC,Urine 2 /hpf (0-5)
[2017-06-10 07:08] LABS: Amphetamine Screen,Urine Not Detected (NotDetected); Barbiturate Screen,Urine Not Detected (NotDetected); Benzodiazepines Screen,Urine Not Detected (NotDetected); Cocaine Screen,Urine Not Detected (NotDetected); Methadone Screen, Urine Not Detected (NotDetected); Opiate Screen,Urine Not Detected (NotDetected); Oxycodone Screen, Urine Not Detected (NotDetected); Phencyclidine Screen,Urine Not Detected (NotDetected); Tricyclic Antidepressant,Urine Not Detected (NotDetected); Urn Cannabinoid Scrn Detected (NotDetected)
[2017-06-10] MEDS ORDERED: levETIRAcetam IV 500 MG in SODIUM CHLORIDE 0.9% 100 ML IVPB STA (07:08)
--- NOTE | 2017-06-10 07:26 | CT ---
EXAMINATION TYPE: CT brain eliana wo con DATE OF EXAM: 06/10/2017 COMPARISON: Previous CT scan of the brain dated 02-10 HISTORY: Seizure CT DLP: [id number] mGycm Automated exposure control for dose reduction was used. TECHNIQUE: CT scan of the head and cervical spine are performed without contrast. FINDINGS: BRAIN: Central structures are midline. There is no evidence of hydrocephalus. No acute focal lesion, mass effect or midline shift is seen. I do not see evidence of intracranial blood. There is some mucoperiosteal thickening involving the right maxillary sinus. The bony calvarium is in tact. IMPRESSION: 1. NO ACUTE INTRACRANIAL ABNORMALITY. 2. RIGHT MAXILLARY SINUS MUCOSAL DISEASE. CERVICAL SPINE: There are emphysematous changes at the lung apices. Prevertebral soft tissues are normal. Vertebral body height and alignment are maintained. Atlantoaxial relationships are normal. There is n o significant degenerative change. No fractures are identified. IMPRESSION: 1. NO ACUTE OSSEOUS LESION. 2. EVIDENCE OF EMPHYSEMATOUS CHANGE WITHIN THE LUNGS.
[2017-06-10] MEDS ORDERED: POTASSIUM CHLORIDE ER 20 MEQ TAB.ER PO STA (10:04)
[2017-06-10] MEDS ORDERED: NALOXONE 0.4 MG/ML 1 ML VIAL IV PRN (11:20)
[2017-06-10] MEDS ORDERED: LORazepam 2 MG/ML INJ IV PRN (11:23)
[2017-06-10] MEDS ORDERED: SODIUM CHLORIDE 0.9% 1,000 ML IV SCH (11:30)
[2017-06-10 15:25] VITALS: BMI 15.9
[2017-06-10] MEDS ORDERED: traMADol 50 MG TAB PO PRN (15:43)
[2017-06-10] MEDS ORDERED: ALPRAZolam 0.25 MG TAB PO PRN (15:43)
[2017-06-10] MEDS ORDERED: TEMAZEPAM 15 MG CAP PO PRN (15:43)
[2017-06-10] MEDS ORDERED: HYDROcodone/APAP 5-325MG 1 EACH TAB PO PRN (15:43)
[2017-06-10] MEDS: GABAPENTIN 400 MG CAP PO SCH ×2 (17:24→22:01)
[2017-06-10] MEDS ORDERED: ACETAMINOPHEN TAB 325 MG TAB PO PRN (20:40)
--- NOTE | 2017-06-10 21:57 | XR ---
EXAMINATION TYPE: XR chest 1V portable DATE OF EXAM: 06/10/2017 COMPARISON: February 05, 2017 HISTORY: Chest pain TECHNIQUE: Single frontal view of the chest is obtained. FINDINGS: There is no focal air space opacity, pleural effusion, or pneumothorax seen. The cardiac silhouette size is within normal limits. The osseous structures are intact. IMPRESSION: No acute process.
[2017-06-10] MEDS: clonazePAM 0.5 MG TAB PO SCH (22:01)
[2017-06-10] MEDS: LACOSAMIDE 50 MG TABLET PO SCH (22:01)
[2017-06-10] MEDS: NAPROXEN 250 MG TAB PO SCH (22:02)
--- NOTE | 2017-06-10 22:26 | HP ---
HISTORY AND PHYSICAL CHIEF COMPLAINT: Seizures. HISTORY OF PRESENT ILLNESS: This is a 47-year-old woman with a past medical history of hypertension, history of seizures, history of chronic back pain, history of anxiety, history of tubal ligation, anxiety and depression being followed by Dr. Bob Odom as an outpatient, had a witnessed seizure. The patient was apparently taken to [facility]. The patient complained of headache. The patient's last seizure was in December. The patient apparently was on medications as well. Currently the patient is unable to give a coherent history. Most of the history taken in my discussion with staff and review of the chart. At this time, there is no history of fever. No history of rigors, chills. No history of any headache, hematochezia or melena at this time. PAST MEDICAL HISTORY: History of seizure, hypertension. History of chronic back pain. MEDICATIONS PRIOR TO ADMISSION: Include: 1. Naprosyn 500 mg p.o. b.i.d. 2. Vimpat 200 mg p.o. b.i.d. 3. Gabapentin 800 mg t.i.d. 4. Ultram 50 mg every 6 hours p.r.n. 5. Klonopin 0.5 mg q.h.s. ALLERGIES: None. FAMILY HISTORY: History of COPD, colon cancer in the family. SOCIAL HISTORY: History of smoking. No history of alcohol intake. REVIEW OF SYSTEMS: ENT: No diminished hearing, diminished vision. CARDIOVASCULAR: No angina, palpitations. RESPIRATORY: As mentioned earlier. GI: No nausea or vomiting. : No dysuria. NERVOUS: No numbness or weakness. ALLERGY/IMMUNOLOGY: No asthma or hay fever. MUSCULOSKELETAL: As mentioned earlier. HEMATOLOGY/ONCOLOGY: No history of anemia. ENDOCRINE: No history of diabetes, hypothyroidism. CONSTITUTIONAL: As mentioned earlier. DERMATOLOGY: Negative. RHEUMATOLOGY: Negative. PSYCHIATRY: As mentioned earlier. PHYSICAL EXAMINATION: Alert and oriented x3. Pulse is 107, blood pressure 90/54, respirations 16, temperature 98 degrees, pulse ox is 99% on room air. HEENT: Conjunctivae normal. Oral mucosa moist. NECK: No jugular venous distention. No carotid bruits. No lymph node enlargement. CARDIOVASCULAR: S1, S2 muffled. RESPIRATORY: Breath sounds diminished in the bases. A few rhonchi. No crackles. ABDOMEN: Soft, nontender. No mass palpable. LEGS: No edema. No swelling. NERVOUS SYSTEM: Higher functions as mentioned earlier. Moves all 4 limbs. No focal motor or sensory deficits. LYMPHATIC: No lymphadenopathy in neck or axillae. SKIN: No ulcer, rash or bleeding. LABS: At this time shows WBC 18.6, hemoglobin is 14. Potassium 3.3. UA noted. Drug screen is positive for marijuana. ASSESSMENT: 1. Seizure disorder with fever for evaluation. 2. Increased WBC. 3. Hypokalemia. 4. Positive THC. 5. History of seizure disorder previously. 6. Hypertension. 7. Chronic back pain. 8. History of anxiety. 9. History of adenoidectomy. 10.History of anxiety, depression. RECOMMENDATIONS AND DISCUSSION: In this 47-year-old woman who presented with multiple complex medical issues, will monitor the patient closely, continue the current medical management and symptomatic treatment. Otherwise, the patient is started on Keppra, neurology evaluation. I would also recommend a set of cultures and also monitor closely. The patient appears to be clinically stable. Prognosis guarded. I would also recommend consult Infectious Disease as well. The CT scan of the cervical spine and the brain was unremarkable. I would also recommend a portable chest x-ray. Further recommendations to follow. A copy of this will be forwarded to Dr. Bob Odom, who is the primary physician. MMCHARLIL / IRAN: [id number] /
--- NOTE | 2017-06-10 22:58 | P.CNNES ---
History of Present Illness Consult date: 06/10/17 Requesting physician: Yaakov Basurto Reason for Consult: Seizure Chief complaint: Seizure History of Present Illness: Neurology is consulting on a 47-year-old female with , chronic back pain, anx and depression. Patient had possible witnessed generalized seizure-like activity. However, the patient is uncertain if it was a grand mal seizure or absence seizure. Patient complained of headache on presentation in the ED. Patient's last known seizure Patient was on medication for seizure but it is unclear the exact medication used. Patient believes that it is Vimpat 200 mg twice a day. Patient is unable to provide the name of her neurologist or who is prescribing her seizure meds on a regular basis. Patient is a marijuana user as well. Patient denies ETOH use, marijuana use desptie + UA for marijuana. Patient cannot state what previous or ongoing medical management her providers are doing for her seizures. She cannot remember when she had an EEG last or MRI of the brain. Patient is alert, resting in bed in no acute distress. Review of Systems All systems not noted in HPI are negative. Past Medical History Past Medical History: Chest Pain / Angina, Hypertension, Neurologic Disorder Additional Past Medical History / Comment(s): chronic back pain, headaches, rapid heart beat, anxiety, seizure 2015 in 01-06-17, CAD, migraines History of Any Multi-Drug Resistant Organisms: None Reported, Acinetobacter ( MDRO) Past Surgical History: Adenoidectomy, Orthopedic Surgery, Tonsillectomy, Tubal Ligation, Uterine Ablation Additional Past Surgical History / Comment(s): novasure implant, left ankle ORIF , oral surgery T + A, tubal ligation, open reduction and internal fixation of left ankle. Past Anesthesia/Blood Transfusion Reactions: No Reported Reaction Past Psychological History: Anxiety, Depression Additional Psychological History / Comment(s): several attempts to obtain recent hx; pt not cooperating. Hs from 01-06-17 Smoking Status: Current every day smoker Past Alcohol Use History: Unable to Obtain Past Drug Use History: Marijuana Additional Drug Use History / Comment(s): occasional, smokes to get an appetite. Additional History: Denied marijuana use, UA found marijuana/THC in sample provided - Past Family History Mother Family Medical History: COPD Sister(s) Family Medical History: No Reported History Brother(s) Family Medical History: Cancer Son(s) Family Medical History: No Reported History father Family Medical History: Cancer Additional Family Medical History / Comment(s): colon ca Medications and Allergies Home Medications Medication Instructions Recorded Confirmed Type clonazePAM [KlonoPIN] 0.5 mg PO HS 01/26/17 06/10/17 History Gabapentin 800 mg PO TID 06/10/17 06/10/17 History Lacosamide [Vimpat] 200 mg PO BID 06/10/17 06/10/17 History Naproxen [Naprosyn] 500 mg PO Q12HR 06/10/17 06/10/17 History traMADol HCL [Ultram] 50 mg PO Q6HR PRN 06/10/17 06/10/17 History Allergies Allergy/AdvReac Type Severity Reaction Status Date / Time No Known Allergies Allergy Verified 06/10/17 12:29 Physical Examination - Vital Signs Vital Signs: Vital Signs Temp Pulse Pulse Resp BP BP Pulse Ox 06/10/17 21:10 100.1 F H 96 16 116/73 96 06/10/17 16:00 98.0 F 107 H 16 90/54 99 06/10/17 12:20 98.7 F 103 H 14 94/52 97 06/10/17 11:00 115 H 18 120/71 98 06/10/17 09:50 114 H 16 113/61 98 06/10/17 08:00 99 16 128/73 100 06/10/17 07:07 101 H 16 134/84 97 06/10/17 06:07 96.3 F L 131 H 24 155/82 96 Intake and Output 06/10/17 06/10/17 06/10/17 06:59 14:59 22:59 Other: Weight 43.5 kg 43.5 kg General appearance: Alert, no apparent distress. Head: Atraumatic, normocephalic, normal inspection Eyes: Well appearance, PERRLA, EOMI. Absent scleral icterus, conjunctival injection, nystagmus, periorbital swelling. Ear, nose and throat: Normal exam, mucous membranes moist Neck: Normal inspection, absent tenderness, lymphadenopathy. Respiratory: No increased work of breathing Cardiovascular: Regular rate, rhythm GI/abdominal: no tenderness, no guarding. Extremities: All range of motion, normal capillary refill, no tenderness, pedal edema joint swelling, calf tenderness. Neurological: cranial nerves II through XII intact no lateralizing weakness no seizure activity noted on physical exam no pronator drift and no nystagmus. strength equal and all 4 extremiti Sensation: normal 4 Psychological: Mood and affect appropriate for setting. Results - Laboratory Findings CBC and BMP: 06/10/17 06:14 06/10/17 06:14 Abnormal Lab Findings: Abnormal Labs 06/10/17 06/10/17 06/10/17 06:14 06:14 06:16 WBC 18.6 H Neutrophils # 14.5 H Potassium 3.3 L Carbon Dioxide 19 L Glucose 175 H AST 40 H Urine Appearance Cloudy H Urine Protein 2+ H Urine Ketones 1+ H Hyaline Casts 20 H Urine Mucus Occasional H U Marijuana (THC) Screen Detected H Assessment and Plan (1) Seizure Current Visit: No Status: Acute Code(s): R56.9 - UNSPECIFIED CONVULSIONS SNOMED Code(s): 64703449 (2) Seizure disorder Current Visit: No Status: Acute Code(s): G40.909 - EPILEPSY, UNSP, NOT INTRACTABLE, WITHOUT STATUS EPILEPTICUS SNOMED Code(s): 879070825 Plan: 1. Seizure 2. Seizure disorder 3. Tobacco use- marijuana Patient does have a known seizure history. Patient's description of seizure activity in the past is more consistent with an absence seizure and not generalized seizure. It is unclear when the or ongoing follow-up work for her seizures. Patient is currently on Vimpat 200 mg twice a day. When taking the medication, patient is seizure free. Despite seizure management on Vimpat, we may need to evaluate the results of EEG, MRI brain to determine whether or not the patient should be transitioned to Zarontin which is more appropriate for absence seizure. Diagnostic workup to include: Updated EEG MRI brain w and wo contrast Treatment options: Discussed treatment options including risks, benefits and alternatives with the patient. Patient agreed to proceed with treatment as noted below: Continue: Vimpat at existing dose and frequency for now Continue seizure precautions Continue neuro checks per protocol Possible change to zarotin if Vimpat fails to control the patients seizure Discussed marijuana use cessation I have discussed the plan of care with the physician prior to implementation and he agrees with the plan as implemented.
[2017-06-11 03:26] LABS: Basophils % (A) 0 %; Eosinophils # (A) 0.1 k/uL (0-0.7); Eosinophils % (A) 1 %; HGB 13.9 gm/dL (11.4-16.0); Lymphocytes # (A) 2.9 k/uL (1.0-4.8); Lymphocytes % (A) 33 %; MCH 31.9 pg (25.0-35.0); MCHC 33.8 g/dL (31.0-37.0); MCV 94.3 fL (80.0-100.0); Mean Platelet Volume 8.9; Monocytes # (A) 0.4 k/uL (0-1.0); Monocytes % (A) 4 %; Neutrophils # (A) 5.1 k/uL (1.3-7.7); Neutrophils % (A) 59 %; Platelet Count 227 k/uL (150-450); RBC 4.35 m/uL (3.80-5.40); RDW 13.1 % (11.5-15.5); WBC 8.6 k/uL (3.8-10.6)
[2017-06-11 03:36] LABS: Anion Gap 9 mmol/L; Blood Urea Nitrogen 13 mg/dL (7-17); Calcium 9.7 mg/dL (8.4-10.2); Carbon Dioxide 24 mmol/L (22-30); Chloride 110 mmol/L (98-107); Glucose 101 mg/dL (74-99); Potassium 4.3 mmol/L (3.5-5.1); Sodium 143 mmol/L (137-145)
[2017-06-11] MEDS: NAPROXEN 250 MG TAB PO SCH ×2 (09:27→22:23)
[2017-06-11] MEDS: GABAPENTIN 400 MG CAP PO SCH ×3 (09:27→22:23)
[2017-06-11] MEDS: PANTOPRAZOLE 40 MG TABLET PO SCH (09:27)
[2017-06-11] MEDS: LACOSAMIDE 50 MG TABLET PO SCH ×2 (09:36→22:20)
--- NOTE | 2017-06-11 20:15 | PN ---
PROGRESS NOTE DATE OF SERVICE: 06/11/2017 This 47-year-old woman was admitted with seizures being closely monitored. No chest pain. No palpitations. No fever. The patient is on Keppra. EXAM: Alert and oriented x3. Pulse 64, blood pressure 111/72, respiration 14, temperature is 98.1, pulse ox 97% on room air. HEENT: Conjunctivae normal. NECK: No jugular venous distention. CARDIOVASCULAR: S1, S2. RESPIRATORY: Breath sounds diminished in the bases. A few scattered rhonchi and crackles. ABDOMEN: Soft, nontender. No mass palpable. LEGS: No edema. NERVOUS SYSTEM: No focal deficits. SKIN: The patient has a few bruises present. LABS: WBC 8.2, hemoglobin 13.9, THC is negative. he chest x-ray showed no acute processes. ASSESSMENT: 1. Seizure disorder with breakthrough seizures. 2. Fever with increased WBC for evaluation. 3. Hypokalemia. 4. Positive THC. 5. History of seizure disorder, previously. 6. Hypertension. 7. Chronic back pain. 8. History of anxiety. 9. History of adenoidectomy. 10.History of anxiety and depression. RECOMMENDATIONS AND DISCUSSION: I recommend to continue current management and treatment. At this time I recommend continue with current medications. Continue with monitoring and closely follow with Neurology. Guarded prognosis because of multiple complex medical issues. Further recommendations to follow. MMODL / IJN: [id number] /
[2017-06-11] MEDS: clonazePAM 0.5 MG TAB PO SCH ×2 (22:20→22:23)
[2017-06-12 05:36] VITALS: RESP 16
--- NOTE | 2017-06-12 06:11 | P.PN ---
Subjective Progress Note Date: 06/12/17 Principal diagnosis: Seizure Interval update (06/12/17): Patient was AOx4 in bed resting in no acute distress Patient has had no seizure activity in the last 48 hours. She is tolerating vimpat well as re-established Patient reports no sensation of possible breakthrough seizure Patient denies any adverse effects Objective - Vital Signs Vital signs: Vital Signs Temp 98.0 F 06/12/17 04:00 Pulse 88 06/12/17 04:00 Resp 16 06/12/17 04:00 BP 106/65 06/12/17 04:00 Pulse Ox 99 06/12/17 04:00 Intake & Output 06/11/17 06/11/17 06/12/17 06:59 18:59 06:59 Weight 43.5 kg 43.5 kg Other: # Voids 1 1 - Exam General appearance: Alert & oriented x4, no apparent distress. Head: Atraumatic, normocephalic, normal inspection Eyes: Well appearance, PERRLA, EOMI. Absent scleral icterus, conjunctival injection, nystagmus, periorbital swelling. Ear, nose and throat: Normal exam, mucous membranes moist Neck: Normal inspection, absent tenderness, lymphadenopathy. Respiratory: No increased work of breathing Cardiovascular: Regular rate, rhythm GI/abdominal: Normal bowel sounds, nondistended, no tenderness, no guarding, no rebound, no rigidity. Extremities: All range of motion, normal capillary refill, no tenderness, pedal edema joint swelling, calf tenderness. Neurological: cranial nerves II through XII intact no lateralizing weakness no seizure activity noted on physical exam no pronator drift and no nystagmus. strength is full, equal and symmetrical 4 Sensation: normal Psychological: Mood and affect appropriate for setting. - Labs CBC & Chem 7: 06/11/17 03:20 06/11/17 03:20 Labs: Microbiology - Last 24 Hours (Table) 06/10/17 22:41 Blood Culture - Preliminary Blood No Growth after 24 hours Assessment and Plan (1) Seizure Current Visit: No Status: Acute Code(s): R56.9 - UNSPECIFIED CONVULSIONS SNOMED Code(s): 62397251 (2) Seizure disorder Current Visit: No Status: Acute Code(s): G40.909 - EPILEPSY, UNSP, NOT INTRACTABLE, WITHOUT STATUS EPILEPTICUS SNOMED Code(s): 982654309 Plan: 1. Seizure 2. Seizure disorder 3. Tobacco use- marijuana Patient does have a known seizure history. Patient's description of seizure activity in the past is more consistent with an absence seizure and not generalized seizure. Patient is currently on Vimpat 200 mg twice a day. Patient has remained seizure free for 48 hours per nursing staff and patient. Diagnostic workup to include: Updated EEG MRI brain w and wo contrast Treatment options: Discussed treatment options including risks, benefits and alternatives with the patient. Patient agreed to proceed with treatment as noted below: Continue: Vimpat at existing dose and frequency for now Continue seizure precautions Continue neuro checks per protocol Possible change to zarotin if Vimpat fails to control the patients seizure Discussed marijuana use cessation Status: If the patient's MRI brain is unremarkable and there are no other causes for further neurological workup AND the patients EEG is taken, the patient can be cleared for discharge from a neurological standpoint. I have discussed the plan of care with the physician prior to implementation and he agrees with the plan as implemented.
--- NOTE | 2017-06-12 06:22 | CONS ---
CONSULTATION DATE OF SERVICE: 06/11/2017 REASON FOR CONSULTATION: Fever. HISTORY OF PRESENT ILLNESS: The patient is a 47-year-old, female with a past medical history significant for seizure disorder has been brought into the ER at [facility]. The patient did have a witnessed seizure by her son. The patient did not recall the events and did not recall that she was having any warning or premonitory symptoms. No fever or chills prior to her seizure activity. The patient has been subsequently evaluated by the ER physician. The patient did have a CT of the brain with spine which was negative for any acute intracranial abnormality and no abnormality in the cervical spine, but some emphysematous changes within the lungs. The patient did have a chest x-ray, which was negative for any acute process. The patient did have a low-grade fever of 100.1 last evening. Infectious Disease was consulted for further recommendation regarding this fever. The patient currently denies having any fever, rigors or chills. Patient denies having any headache. No chest pain. No shortness of breath or cough. No abdominal pain. No diarrhea. No urinary symptoms. No further has been noticed. REVIEW OF SYSTEMS: CONSTITUTIONAL: Positive for weakness. Denies any rigors or chills and a low-grade fever documented as mentioned earlier. EYES: No complaint. ENT: No complaint. RESPIRATORY: No complaint. CARDIOVASCULAR: No complaint. GENITOURINARY: No complaint. GASTROINTESTINAL: No complaint. MUSCULOSKELETAL: No complaint. INTEGUMENTARY: No complaint. PSYCHOLOGICAL: No complaint. ENDOCRINE: No complaint. NEUROLOGICAL: As per HPI. PAST MEDICAL HISTORY: Significant for hypertension, chronic back pain, history of seizure disorder, anxiety, coronary artery disease, migraines. PAST SURGICAL HISTORY: Adenoidectomy, orthopedic surgery, tonsillectomy, tubal ligation, uterine ablation, oral surgery, ORIF of the left ankle. SOCIAL HISTORY: Positive for current every day smoker. No drinking or drug use. FAMILY HISTORY: No pertinent findings noticed. ALLERGIES: No known drug allergies. MEDICATION: Medications include the patient currently on Tylenol, [place], Xanax, Klonopin, Neurontin, Vimpat, Narcan, naproxen, Protonix, Restoril and Ultram. PHYSICAL EXAMINATION: On examination, blood pressure is 114/76 with a pulse of 85, temperature 98.4. She is 96% on room air. General description is a middle-aged female lying in bed in no distress. No tachypnea or accessory muscle of respiration use. HEENT examination shows no pallor or scleral icterus. Oral mucous membranes dry. NECK: Trachea central. There is no thyromegaly. LUNGS: Unlabored breathing, clear to auscultation anteriorly. No wheeze or crackles. HEART: S1, S2. Regular rate and rhythm. No added sounds. ABDOMEN: Soft, no tenderness. No guarding. No rigidity. No organomegaly. EXTREMITIES: No edema of the feet. SKIN EXAMINATION: No rash or mass palpable. NEUROLOGICAL: Patient is awake, alert, oriented x3. No signs of meningeal irritation. Mood and affect normal. LABS: Hemoglobin 13.9, white count 8.6 with a BUN of 13, creatinine 0.60. has been normal. Urine is cloudy, but leukocyte esterase and nitrite negative. Urine drug screen was positive for marijuana. Chest x-ray reported to be negative. DIAGNOSTIC IMPRESSION AND PLAN: Patient admitted to the hospital with seizure activity in a patient who did have elevated white count of 18.6. Did have a low-grade fever. Could be related to her seizure activity. Clinically doubt any infectious etiology at this point as the patient overall fever has resolved and white count has normalized and no clinical findings on examination. Lungs are clear to auscultation. Abdomen was soft. PLAN: 1. We will hold on any systemic antibiotic therapy at this point as no clear focus of infection and leukocytosis and low-grade fever all likely reactive. 2. RN has been advised if the patient has any new fever to let me know right away. At that point, we will re-culture the patient and start the patient on appropriate antibiotic. MMODL / IJN: [id number] /
[2017-06-12] MEDS: PANTOPRAZOLE 40 MG TABLET PO SCH (08:52)
[2017-06-12] MEDS: GABAPENTIN 400 MG CAP PO SCH (08:52)
[2017-06-12] MEDS: LACOSAMIDE 50 MG TABLET PO SCH (08:53)
[2017-06-12] MEDS: NAPROXEN 250 MG TAB PO SCH (11:06)
--- NOTE | 2017-06-12 11:08 | MR ---
PRE AND POSTCONTRAST ENHANCED MRI OF THE BRAIN: CLINICAL HISTORY: Seizure CONTRAST: 4ml gadavist Comparison: 01/07/2017. Multiplanar and multispin-echo imaging of the brain was performed both before and after the administr ation of contrast. The ventricles, basal cisterns and sulci overlying the cerebral convexities are within normal limits. There is no evidence for midline shift or mass effect. Acute intracranial hemorrhage or extra-axial collection is not evident. Small focal area of increased signal right frontal region is nonspecific and too small to appropriate ly characterize. Brain parenchyma is otherwise homogeneous. Following contrast administration, there is no evidence for pathologic enhancement or enhancing mass. The paranasal sinuses and mastoid air cells are well-aerated. IMPRESSION: Small focal area of increased signal right frontal region is nonspecific and too small to appropriate ly characterize. Brain parenchyma is otherwise homogeneous.
--- NOTE | 2017-06-12 11:37 | PN ---
PROGRESS NOTE DATE OF SERVICE: 06/12/2017. REASON FOR FOLLOWUP: Fever and leukocytosis, more likely related to the seizure. INTERVAL HISTORY: The patient is afebrile. She is breathing comfortably. Denies having any chest pain, shortness of breath or cough. No abdominal pain or diarrhea. PHYSICAL EXAMINATION: On examination, blood pressure 135/80 with a pulse of 83, temperature of 98.1. She is 99% on room air. General description is a middle aged female lying in bed in no distress. RESPIRATORY SYSTEM: Unlabored breathing, clear to auscultation anteriorly. HEART: S1, S2. Regular rate and rhythm. ABDOMEN: Soft, no tenderness. LABS: White count normal at 8.6. BUN of 13, creatinine 0.60. Culture had been negative. DIAGNOSTIC IMPRESSION AND PLAN: Patient with low-grade fever and with elevated white count more likely due to her seizure activity. Clinically doubt any infectious etiology. No further fever has been noticed. White count has been normal. Culture negative. No need for antibiotic therapy. MMODL / IJN: [id number] /
[2017-06-12 12:17] VITALS: BP 123/67; PULSE 85; TEMP 99.7
--- NOTE | 2017-06-12 22:10 | DS ---
DISCHARGE SUMMARY DATE OF SERVICE: 06/12/2017. FINAL DIAGNOSES: 1. Seizure disorder with breakthrough seizures. 2. Fever with increased WBC, improved, possibly reactive. 3. Hypokalemia. 4. Positive THC. 5. History of seizure disorder previous. 6. Hypertension. 7. Chronic back pain. 8. History of anxiety. 9. History of adenoidectomy. 10.History of anxiety and depression. DISCHARGE DISPOSITION: The patient will be discharged in stable condition with guarded prognosis. HISTORY OF PRESENT ILLNESS: This 47-year-old woman with a past medical history of multiple medical problems admitted with seizure disorder. The patient also possibly had breakthrough seizure. The patient treated with Keppra, improved significantly. Neurology saw the patient. EEG has been done and MRI of the brain was also done. MRA showed a small foci of increased signal in the frontal region which is nonspecific. On exam, vitals are stable. Cardiovascular: S1, S2 Abdomen: Soft. Nervous System: No focal discharge. DISCHARGE ADVICE AND MEDICATIONS: 1. Diet is cardiac. 2. Activities limited until followup. 3. Follow up with Dr. Bob Odom in 2 to 3 days. 4. Follow with Dr. Waters as advised. MEDICATIONS: 1. Tylenol 650 q.4h p.r.n. 2. Klonopin 0.5 mg q.h.s. 3. Gabapentin 800 mg p.o. t.i.d. 4. Vimpat 200 mg p.o. b.i.d. 5. Naprosyn 500 mg p.o. b.i.d. 6. Protonix 40 mg b.i.d. 7. Ultram 50 mg q.6h p.r.n. MMODL / IJN: [id number] /
--- NOTE | 2017-06-16 10:05 | EEG ---
ELECTROENCEPHALOGRAM REPORT DATE OF SERVICE: 06/12/2017 REASON FOR TESTING: Seizure. CURRENT ANTIEPILEPTIC MEDICATIONS: Keppra, Vimpat and Neurontin. DESCRIPTION OF THE RECORDING: This EEG was performed using a 21 channel digital electroencephalograph, following international 10 to 20 system. DESCRIPTION OF THE RECORDING: From the beginning of the tracing, and with the patient's eyes closed, the background rhythm was mostly consisting of 8 to 9 Hz alpha frequency in the posterior occipital leads. No obvious asymmetry is seen. Frequent muscle artifacts and occasional movement artifacts are seen. Photic stimulation was performed with a minimal driving response seen. No pathological waves were elicited. Hyperventilation was performed with a minimal buildup of amplitude seen. Again, no pathological waves were elicited. The patient remains awake throughout the tracing. No epileptiform discharges were seen. Her EKG lead showed a regular rate and rhythm. INTERPRETATION: This awake EEG can be considered within normal limits. There is no asymmetry seen. No epileptiform discharges were noticed. The absence of epileptiform discharges does not rule out the diagnosis of epilepsy, therefore clinical correlation is recommended. MMJC / WILFRIDO: [id number] /
== END 2017-06-12 13:21 | disposition home or self-care (01) ==
LOC: EC 06:05 → 3OBS 11:21
PROVIDERS: ADMIT Hospitalist; ATTEND Hospitalist
DX: G40.909 Epilepsy, unspecified, not intractable, without status epilepticus (principal); R50.9 Fever, unspecified; E87.6 Hypokalemia; D72.829 Elevated white blood cell count, unspecified; F12.90 Cannabis use, unspecified, uncomplicated; G89.29 Other chronic pain; M54.9 Dorsalgia, unspecified; I10 Essential (primary) hypertension; F41.9 Anxiety disorder, unspecified; F32.9 Major depressive disorder, single episode, unspecified; S00.81XA Abrasion of other part of head, initial encounter; G43.909 Migraine, unspecified, not intractable, without status migrainosus; F17.200 Nicotine dependence, unspecified, uncomplicated; I25.10 Atherosclerotic heart disease of native coronary artery without angina pectoris; X58.XXXA Exposure to other specified factors, initial encounter; Z23 Encounter for immunization; Z79.1 Long term (current) use of non-steroidal anti-inflammatories (NSAID); Z79.899 Other long term (current) drug therapy; Z90.49 Acquired absence of other specified parts of digestive tract; Z80.0 Family history of malignant neoplasm of digestive organs; Z82.5 Family history of asthma and other chronic lower respiratory diseases
CPT/HCPCS: 36415; 95816; 93005; 80053; 80048; 80177; 84484; 85025 ×2; 81001; 87040; 80306; 80320; 71045; 72125; 70450; 70553; 90715; 99285; 96374; 96375; 96361; G0378 ×3; J2060; J1953; A9581

== ENCOUNTER 2018-03-01 20:56 | Observation (INO) | payer MEDICARE, OTHER ==
[2018-03-01] MEDS ORDERED: SODIUM CHLORIDE 0.9% 500 ML 500 ML IV STA (21:45)
--- NOTE | 2018-03-01 21:59 | XR ---
PROCEDURE: XR hand complete RT - 3V DATE AND TIME: 03/01/2018 9:48 PM CLINICAL INDICATION: PHH; Pain TECHNIQUE: Department protocol COMPARISON: None FINDINGS: There is no fracture or malalignment. The soft tissues are unremarkable. IMPRESSION: NO ACUTE PROCESS.
[2018-03-01 22:22] LABS: Basophils % (A) 0 %; Eosinophils # (A) 0.1 k/uL (0-0.7); Eosinophils % (A) 2 %; HCT 40.3 % (34.0-46.0); HGB 13.4 gm/dL (11.4-16.0); Lymphocytes # (A) 2.7 k/uL (1.0-4.8); Lymphocytes % (A) 31 %; MCH 32.2 pg (25.0-35.0); MCHC 33.3 g/dL (31.0-37.0); MCV 96.6 fL (80.0-100.0); Mean Platelet Volume 7.9; Monocytes # (A) 0.6 k/uL (0-1.0); Monocytes % (A) 7 %; Neutrophils # (A) 5.3 k/uL (1.3-7.7); Neutrophils % (A) 59 %; Platelet Count 226 k/uL (150-450); RBC 4.18 m/uL (3.80-5.40); RDW 12.5 % (11.5-15.5); WBC 8.9 k/uL (3.8-10.6)
[2018-03-01 22:36] LABS: ALT 26 U/L (9-52); AST 21 U/L (14-36); Albumin 4.4 g/dL (3.5-5.0); Alkaline Phosphatase 90 U/L (38-126); Anion Gap 8 mmol/L; Blood Urea Nitrogen 10 mg/dL (7-17); C Reactive Protein 50.6 mg/L (<10.0); Calcium 9.5 mg/dL (8.4-10.2); Carbon Dioxide 24 mmol/L (22-30); Chloride 109 mmol/L (98-107); Glucose 88 mg/dL (74-99); Potassium 3.6 mmol/L (3.5-5.1); Sodium 141 mmol/L (137-145); Total Bilirubin 0.4 mg/dL (0.2-1.3); Total Protein 7.1 g/dL (6.3-8.2)
[2018-03-01] MEDS ORDERED: VANCOMYCIN IV PER PHARMACY 1 EACH MISC MISCELLANE PRN (22:54)
[2018-03-01] MEDS ORDERED: MORPHINE SULFATE 4 MG/ML SYRINGE IV STA (23:05)
--- NOTE | 2018-03-01 23:06 | ED ---
General Adult HPI - General Source: patient, RN notes reviewed, old records reviewed Mode of arrival: ambulatory Limitations: no limitations <Tyrone Beasley - Last Filed: 03/02/18 00:19> <Yaakov Basurto - Last Filed: 03/02/18 07:01> - General Chief complaint: Skin/Abscess/Foreign Body Stated complaint: Finger infection - History of Present Illness Initial comments: 47-year-old female patient no pertinent past history presents to ED with pain of fourth digit on right hand. Patient states that approximately 5 days ago she stumbled into a rosebush, resulting in multiple small puncture wounds to her right hand. Patient states that for approximately last 2 days she has noticed swelling, pain at the fourth digit on the right hand. Patient has pain with bending the finger, pain with palpation. Patient denies any discharge. Patient states the finger is very red and swollen. Patient denies fever chills , nausea vomiting diarrhea, chest pain, shortness of breath, abdominal pain, headache, changes in vision, any other wounds or areas of pain. Systemic: Pt denies fatigue, myalgia, fever/chills, rash. Pt denies weakness, night sweats, weight loss. Neuro: Pt denies headache, visual disturbances, syncope or pre-syncope. HEENT: Pt denies ocular discharge or irritation, otalgia, rhinorrhea, pharyngitis or notable lymphadenopathy. Cardiopulmonary: Pt denies chest pain, SOB, heart palpitations, dyspnea on exertion. Abdominal/GI: Pt denies abdominal pain, n/v/d. : Pt denies dysuria, burning w/ urination, frequency/urgency. Denies new onset urinary or bowel incontinence. MSK: Pt denies myalgia, loss of strength or function in extremities. Neuro: Pt denies new onset weakness, paresthesias. (Tyrone Beasley) - Related Data Home Medications Medication Instructions Recorded Confirmed clonazePAM [KlonoPIN] 0.5 mg PO HS 01/26/17 06/10/17 Gabapentin 800 mg PO TID 06/10/17 06/10/17 Lacosamide [Vimpat] 200 mg PO BID 06/10/17 06/10/17 Naproxen [Naprosyn] 500 mg PO Q12HR 06/10/17 06/10/17 traMADol HCL [Ultram] 50 mg PO Q6HR PRN 06/10/17 06/10/17 Previous Rx's Medication Instructions Recorded Acetaminophen Tab [Tylenol] 650 mg PO Q4HR PRN tab 06/12/17 Pantoprazole [Protonix] 40 mg PO AC-BRKFST #30 tablet. 06/12/17 Allergies Allergy/AdvReac Type Severity Reaction Status Date / Time No Known Allergies Allergy Verified 03/01/18 21:07 Review of Systems ROS Other: All systems not noted in ROS Statement are negative. <Tyrone Beasley - Last Filed: 03/02/18 00:19> ROS Other: All systems not noted in ROS Statement are negative. <Yaakov Basurto - Last Filed: 03/02/18 07:01> ROS Statement: Those systems with pertinent positive or pertinent negative responses have been documented in the HPI. Past Medical History Past Medical History: Chest Pain / Angina, Hypertension, Neurologic Disorder Additional Past Medical History / Comment(s): chronic back pain, headaches, rapid heart beat, anxiety, seizure 2015 in 01-06-17, CAD, migraines History of Any Multi-Drug Resistant Organisms: None Reported, Acinetobacter ( MDRO) Past Surgical History: Adenoidectomy, Orthopedic Surgery, Tonsillectomy, Tubal Ligation, Uterine Ablation Additional Past Surgical History / Comment(s): novasure implant, left ankle ORIF , oral surgery T + A, tubal ligation, open reduction and internal fixation of left ankle. Past Anesthesia/Blood Transfusion Reactions: No Reported Reaction Past Psychological History: Anxiety, Depression Smoking Status: Current every day smoker Past Alcohol Use History: None Reported Past Drug Use History: Marijuana - Past Family History Mother Family Medical History: COPD Sister(s) Family Medical History: No Reported History Brother(s) Family Medical History: Cancer Son(s) Family Medical History: No Reported History father Family Medical History: Cancer Additional Family Medical History / Comment(s): colon ca <Tyrone Beasley - Last Filed: 03/02/18 00:19> General Exam Limitations: no limitations <Tyrone Beasley - Last Filed: 03/02/18 00:19> <Yaakov Basurto - Last Filed: 03/02/18 07:01> - General Exam Comments Initial Comments: Constitutional: NAD, AOX3, Pt has pleasant affect. HEENT: NC/AT, trachea midline, neck supple, no lymphadenopathy. Posterior pharynx non erythematous, without exudates. External ears appear normal, without discharge. Mucous membranes moist. Eyes PERRLA, EOM intact. There is no scleral icterus. No pallor noted. Cardiopulmonary: RRR, no murmurs, rubs or gallops, no JVD noted. Lungs CTAB in anterior and posterior luna. No peripheral edema. Abdominal exam: Abdomen soft and non-distended. Abdomen non-tender to palpation in all 4 quadrants. Bowel sounds active in LLQ. No hepatosplenomegaly. Neuro: CN II-XII grossly intact. No nuchal rigidity. MSK: Patient had palpation of flexor sheath of fourth digit of right hand. Patient fingers in a partially flexed position. Patient is able to extend finger out fully, with moderate discomfort. Patient flexion of digit is very limited secondary to pain and edema. Patient fingers edematous and erythematous distal to the MCP joint. No other areas of discharge, no fluctuance. Capillary refill less than 2 seconds, sensation intact. No posterior calf tenderness bilaterally, homans sign negative bilaterally. Posterior tibialis and radial pulse +2 bilaterally. (Tyrone Beasley) Vital Signs 03/01/18 03/02/18 21:04 00:31 Temperature 98.5 F 97.8 F Pulse Rate 98 79 Respiratory 18 18 Rate Blood Pressure 145/88 133/70 O2 Sat by Pulse 99 98 Oximetry Medical Decision Making - Lab Data Result diagrams: 03/01/18 22:10 03/01/18 22:10 <Tyrone Beasley - Last Filed: 03/02/18 00:19> - Lab Data Result diagrams: 03/01/18 22:10 03/01/18 22:10 <Yaakov Basurto - Last Filed: 03/02/18 07:01> - Medical Decision Making 47-year-old female patient presents to ED with pain and fourth digit of right finger. Patient sustained a puncture injury from a loretta approximately 5 days ago. Patient has pain, erythema, edema at the fourth digit on the right hand. Physical exam is suspicious of infectious flexor Tenosynovitis. Plain film of right hand did not display any acute osseous abnormality or other pathology. Abdominal investigations were conducted CBC, CMP were non-impressive. CRP was elevated. ESR is pending. Patient was empirically started on vancomycin and unasyn. Case is discussed in depth with Dr. Pedroza, Dr. Cleveland the on-call orthopedic consult contacted. Patient to be admitted to medicine. (Tyrone Beasley) I saw this patient in conjunction with the physician learning support assistant. I performed independent history and physical exam. Agree with case management. (Yaakov Basurto) - Lab Data Lab Results 03/01/18 03/01/18 03/01/18 Range/Units 22:10 22:10 22:10 WBC 8.9 (3.8-10.6) k/uL RBC 4.18 (3.80-5.40) m/uL Hgb 13.4 (11.4-16.0) gm/dL Hct 40.3 (34.0-46.0) % MCV 96.6 (80.0-100.0) fL MCH 32.2 (25.0-35.0) pg MCHC 33.3 (31.0-37.0) g/dL RDW 12.5 (11.5-15.5) % Plt Count 226 (150-450) k/uL Neutrophils % 59 % Lymphocytes % 31 % Monocytes % 7 % Eosinophils % 2 % Basophils % 0 % Neutrophils # 5.3 (1.3-7.7) k/uL Lymphocytes # 2.7 (1.0-4.8) k/uL Monocytes # 0.6 (0-1.0) k/uL Eosinophils # 0.1 (0-0.7) k/uL Basophils # 0.0 (0-0.2) k/uL ESR 8 (0-20) mm/hr Sodium 141 (137-145) mmol/L Potassium 3.6 (3.5-5.1) mmol/L Chloride 109 H (98-107) mmol/L Carbon Dioxide 24 (22-30) mmol/L Anion Gap 8 mmol/L BUN 10 (7-17) mg/dL Creatinine 0.55 (0.52-1.04) mg/dL Est GFR (CKD-EPI)AfAm >90 (>60 ml/min/1.73 sqM) Est GFR (CKD-EPI)NonAf >90 (>60 ml/min/1.73 sqM) Glucose 88 (74-99) mg/dL Calcium 9.5 (8.4-10.2) mg/dL Total Bilirubin 0.4 (0.2-1.3) mg/dL AST 21 (14-36) U/L ALT 26 (9-52) U/L Alkaline Phosphatase 90 (38-126) U/L C-Reactive Protein 50.6 H (<10.0) mg/L Total Protein 7.1 (6.3-8.2) g/dL Albumin 4.4 (3.5-5.0) g/dL Disposition Is patient prescribed a controlled substance at d/c from ED?: No <Tyrone Beasley - Last Filed: 03/02/18 00:19> <Yaakov Basurto - Last Filed: 03/02/18 07:01> Clinical Impression: Flexor tenosynovitis of finger Disposition: ADMITTED IP TO THIS HOSP Condition: Good
[2018-03-01] MEDS ORDERED: VANCOMYCIN 1,000 MG in SODIUM CHLORIDE 0.9% 250 ML IVPB STA (23:28)
[2018-03-02] MEDS ORDERED: AMPICILLIN-SULBACTAM 3 GM in SODIUM CHLORIDE 0.9% 50 ML IVPB SCH ×2
[2018-03-02] MEDS ORDERED: ACETAMINOPHEN TAB 325 MG TAB PO PRN (00:02)
[2018-03-02] MEDS ORDERED: NALOXONE 0.4 MG/ML 1 ML VIAL IV PRN (00:02)
[2018-03-02 01:00] VITALS: BMI 20.5
[2018-03-02] MEDS: MORPHINE SULFATE 4 MG/ML SYRINGE IV PRN ×3 (01:00→13:00)
[2018-03-02] MEDS ORDERED: AMPICILLIN-SULBACTAM 3 GM in SODIUM CHLORIDE 0.9% 100 ML IVPB SCH (01:14)
[2018-03-02] MEDS: AMPICILLIN-SULBACTAM 3 GM in SODIUM CHLORIDE 0.9% 100 ML IVPB SCH ×4 (02:16→18:21)
[2018-03-02 08:11] VITALS: TEMP 97.8
[2018-03-02] MEDS ORDERED: VANCOMYCIN 750 MG in SODIUM CHLORIDE 0.9% 250 ML IVPB SCH (10:00)
[2018-03-02] MEDS ORDERED: SUMAtriptan SUCCINATE 50 MG TAB PO PRN (15:42)
[2018-03-02 15:52] VITALS: BP 123/67; PULSE 54; RESP 18
[2018-03-02] MEDS ORDERED: GABAPENTIN 400 MG CAP PO SCH (16:00)
[2018-03-02] MEDS ORDERED: NAPROXEN 250 MG TAB PO SCH (17:45)
[2018-03-02] MEDS ORDERED: NICOTINE 21MG/24HR PATCH TRANSDERM SCH (17:45)
--- NOTE | 2018-03-02 20:30 | DS ---
DISCHARGE SUMMARY HISTORY AND PHYSICAL/DISCHARGE SUMMARY: DATE OF ADMISSION: 03/01/2018. DATE OF DISCHARGE: 03/02/2018 PRESENTING COMPLAINT: Infected right hand 3rd finger. HISTORY OF PRESENTING COMPLAINT: Pleasant 47-year-old patient of Dr. Bob Odom. Chronic stable medical conditions include hypertension, chronic low back pain, cephalgia, anxiety, seizure disorder, last episode being in May of this year and migraines. The patient was outside and fell in the thorn brush and got a thorn inside the finger. It became red and inflamed, decided to present to the ER yesterday evening. This actually happened about 5 days ago. It has some pain and swelling. It was red and swollen. No fever. No chills. Presented to the ER. The patient was started on IV Unasyn in the ER which she greatly improved. The patient able to actually bend the finger. Redness went down. REVIEW OF SYSTEMS: CONSTITUTIONAL: None. HEENT: None. RESPIRATORY: None. CARDIOVASCULAR: None. GASTROINTESTINAL: None. GENITOURINARY: None. MUSCULOSKELETAL: Chronic low back pain. DERMATOLOGICAL as above. LYMPHATICS: None. PSYCHIATRY. Anxious. NEUROLOGICAL: None. PAST MEDICAL HISTORY: Of hypertension, chronic low back pain, headaches, anxiety, seizure disorder, migraines. PAST SURGICAL HISTORY: Adenoidectomy, tonsillectomy, tubal ligation, uterine ablation, left ankle ORIF. PAST PSYCH HISTORY: Anxiety, depression. SOCIAL HISTORY: Smokes a pack a day for over 25 years. Does marijuana occasionally. Lives with her son. FAMILY HISTORY: Of colon cancer. HOME MEDICATIONS: 1. Desyrel 100-150 mg p.o. q.h.s. 2. Trintellix 10 mg p.o. daily. 3. Topamax 50 mg q.h.s., 25 mg a day. 4. Imitrex 50 mg daily p.r.n. 5. Seroquel 25 mg p.o. daily. 6. Omeprazole 40 mg p.o. daily. 7. Vimpat 200 mg b.i.d. 8. Neurontin 800 mg p.o. t.i.d. ALLERGIES: None. PHYSICAL EXAMINATION: VITAL SIGNS: Vital signs on presentation, temperature 98.5, pulse 98, respiratory 18, blood pressure 145/88, pulse 99% on room air. GENERAL APPEARANCE: Thin build, sitting up, comfortable. EYES: Pupils are equal. Conjunctivae normal. HEENT: External appearance of nose and ears normal. Oral cavity normal. NECK: JVD not raised. Mass not palpable. RESPIRATORY: Effort normal. LUNGS fair entry. CARDIOVASCULAR: 1st and 2nd sounds normal. No edema. ABDOMEN: Soft, nontender. Liver and spleen not palpable. LYMPHATICS: No lymph nodes palpable in the neck and axilla. PSYCHIATRY: Alert and oriented x3. Mood and affect normal. NEUROLOGICAL: Pupils equal. Cranial nerves grossly intact. Power and sensation grossly intact. MUSCULOSKELETAL: Right hand 3rd finger some redness, mild swelling of the right 3rd finger around the proximal interphalangeal joint. The patient is able to move her fingers. She stated this is much improved. INVESTIGATIONS: White count 8.9, hemoglobin 13.4, potassium 3.6. ASSESSMENT: 1. Acute cellulitis of right hand 3rd finger from foreign body, probably in the form of a thorn, responded well to IV antibiotics. 2. Essential hypertension. 3. Chronic low back pain. 4. Seizure disorder. 5. Chronic nicotine dependence, patient is a cigarette smoker. 6. Recreational marijuana use. PLAN: Patient in the ER was started on IV antibiotics including IV Unasyn and vancomycin to which she has responded rather well. Other home medications are resumed. Patient given a nicotine patch. We will also add naproxen for anti-inflammatory affect. The patient has already received 3 doses of IV Unasyn. Will get one more dose. Given the great response, will discharge the patient home on Bactrim. Also patient told to soak her fingers 4 times a day and add more warm compresses. She should follow up with the family doctor early next week. DISCHARGE MEDICATIONS: 1. Same as above. 2. Bactrim DS 1 tablet twice a day for [address] Odom. This is both a history physical and discharge summary. MMODL / IJN: [id number] /
[2018-03-02] MEDS ORDERED: TOPIRAMATE 25 MG TAB PO SCH (21:00)
[2018-03-02] MEDS ORDERED: LACOSAMIDE 50 MG TABLET PO SCH (21:00)
[2018-03-02] MEDS ORDERED: traZODone HCL 100 MG TAB PO PRN (21:00)
[2018-03-03] MEDS ORDERED: PANTOPRAZOLE 40 MG TABLET PO SCH (07:30)
[2018-03-03] MEDS ORDERED: VORTIOXETINE HYDROBROMIDE 10 MG TABLET PO SCH (09:00)
[2018-03-03] MEDS ORDERED: QUEtiapine 25 MG TAB PO SCH (09:00)
[2018-03-03] MEDS ORDERED: TOPIRAMATE 25 MG TAB PO SCH (09:00)
== END 2018-03-02 19:05 | disposition home or self-care (01) ==
LOC: EC 20:56 → 1SOBS 23:59
PROVIDERS: ADMIT Hospitalist; ATTEND Hospitalist
DX: L03.011 Cellulitis of right finger (principal); I10 Essential (primary) hypertension; G89.29 Other chronic pain; M54.5 Low back pain; G40.909 Epilepsy, unspecified, not intractable, without status epilepticus; G43.909 Migraine, unspecified, not intractable, without status migrainosus; F41.9 Anxiety disorder, unspecified; I25.10 Atherosclerotic heart disease of native coronary artery without angina pectoris; F32.9 Major depressive disorder, single episode, unspecified; F17.210 Nicotine dependence, cigarettes, uncomplicated; F12.90 Cannabis use, unspecified, uncomplicated; Z79.899 Other long term (current) drug therapy; Z98.51 Tubal ligation status; Z82.5 Family history of asthma and other chronic lower respiratory diseases; Z80.0 Family history of malignant neoplasm of digestive organs; W60.XXXA Contact with nonvenomous plant thorns and spines and sharp leaves, initial encounter
CPT/HCPCS: 96366; 96367; 96376; 96365; 96375; 99284; 36415; 80053; 85652; 85025; 86140; 87040; 73130; G0378 ×2; J3370 ×2; J2270 ×2; J0295

== ENCOUNTER 2018-05-21 20:01 | Emergency (ER) | payer MEDICARE, OTHER ==
[2018-05-21] MEDS ORDERED: MORPHINE SULFATE 4 MG/ML SYRINGE IV STA (21:44)
[2018-05-21] MEDS ORDERED: ONDANSETRON 4 MG/2 ML VIAL IVP STA ×2 (21:44→23:32)
[2018-05-21] MEDS ORDERED: SODIUM CHLORIDE 0.9% 1,000 ML IV STA (21:44)
--- NOTE | 2018-05-21 22:00 | ED ---
Abdominal Pain HPI - General Chief Complaint: Abdominal Pain Stated Complaint: Gallbladder pain Time Seen by Provider: 05/21/18 21:33 Source: patient Mode of arrival: ambulatory Limitations: no limitations - History of Present Illness Initial Comments: 48-year-old female patient presents to the emergency department today for evaluation of upper abdominal pain radiating through to her back. She also reports nausea and vomiting. States that she does have issues with her gallbladder and is scheduled to have surgery in May. States that she has been having intermittent pain and vomiting. States that this current episode started last evening. States she was able to eat breakfast but since then she has been having severe pain to the upper abdomen. States that she is also having chest pain and shortness of breath with this. She denies any fevers or chills. Denies any hematochezia, melena, or hematemesis. Denies any history of abdominal surgery. Patient denies any recent rash, shortness breath, chest pain, diarrhea, constipation, back pain, numbness, tingling, dizziness, weakness , hematuria, dysuria, urinary urgency, urinary frequency, headache, visual changes, or any other complaints. - Related Data Home Medications Medication Instructions Recorded Confirmed Gabapentin 800 mg PO TID 06/10/17 05/21/18 Lacosamide [Vimpat] 200 mg PO BID 06/10/17 05/21/18 Omeprazole 40 mg PO DAILY 03/02/18 05/21/18 QUEtiapine [SEROquel] 25 mg PO DAILY 03/02/18 05/21/18 Vortioxetine Hydrobromide 10 mg PO DAILY 03/02/18 05/21/18 [Trintellix] traZODone HCL [Desyrel] 100 - 150 mg PO HS 03/02/18 05/21/18 Albuterol Inhaler [Ventolin Hfa 1 - 2 puff INHALATION RT-Q6H PRN 05/07/18 Inhaler] Ipratropium/Albuterol Sulfate 2 puff INHALATION BID 05/21/18 05/21/18 [Combivent Respimat Inhaler] Topiramate [Topamax] 50 mg PO HS 05/21/18 05/21/18 Previous Rx's Medication Instructions Recorded Ibuprofen [Motrin] 600 mg PO Q8HR PRN #30 tab 05/22/18 Ondansetron [Zofran ODT] 4 mg PO Q8HR PRN #10 tab 05/22/18 Allergies Allergy/AdvReac Type Severity Reaction Status Date / Time No Known Allergies Allergy Verified 05/21/18 21:52 Review of Systems ROS Statement: Those systems with pertinent positive or pertinent negative responses have been documented in the HPI. ROS Other: All systems not noted in ROS Statement are negative. Past Medical History Past Medical History: Chest Pain / Angina, Hypertension, Neurologic Disorder Additional Past Medical History / Comment(s): chronic back pain, headaches, rapid heart beat, anxiety, seizure - last 05/2017, migraines History of Any Multi-Drug Resistant Organisms: None Reported Past Surgical History: Adenoidectomy, Orthopedic Surgery, Tonsillectomy, Tubal Ligation, Uterine Ablation Additional Past Surgical History / Comment(s): left ankle ORIF, oral surgery T + A, tubal ligation Past Anesthesia/Blood Transfusion Reactions: No Reported Reaction Past Psychological History: Anxiety, Depression Smoking Status: Current every day smoker Past Alcohol Use History: None Reported Past Drug Use History: Marijuana - Past Family History Mother Family Medical History: COPD Sister(s) Family Medical History: No Reported History Brother(s) Family Medical History: Cancer Son(s) Family Medical History: No Reported History father Family Medical History: Cancer Additional Family Medical History / Comment(s): colon ca General Exam Limitations: no limitations General appearance: alert, in no apparent distress, other (This is a well- developed, thin appearing adult female patient in no acute distress. Vital signs upon presentation are temperature 98.5F, pulse 98, respirations 18, blood pressure 140/66, pulse ox 97% on room air.) Eye exam: Present: normal appearance, PERRL, EOMI. Absent: scleral icterus, conjunctival injection, periorbital swelling ENT exam: Present: normal exam, normal oropharynx, mucous membranes moist Respiratory exam: Present: normal lung sounds bilaterally. Absent: respiratory distress, wheezes, rales, rhonchi, stridor Cardiovascular Exam: Present: regular rate, normal rhythm, normal heart sounds. Absent: systolic murmur, diastolic murmur, rubs, gallop, clicks GI/Abdominal exam: Present: soft, tenderness (Midepigastric tenderness), normal bowel sounds. Absent: distended, guarding, rebound, rigid Neurological exam: Present: alert, oriented X3, CN II-XII intact Psychiatric exam: Present: normal affect, normal mood Skin exam: Present: warm, dry, intact, normal color. Absent: rash Course Vital Signs 05/21/18 05/21/18 05/21/18 20:17 21:28 22:17 Temperature 98.5 F 98.2 F Pulse Rate 98 57 L 58 L Respiratory 18 15 15 Rate Blood Pressure 140/66 157/86 147/84 O2 Sat by Pulse 97 96 95 Oximetry 05/21/18 23:56 Temperature 97.5 F L Pulse Rate 60 Respiratory 16 Rate Blood Pressure 152/86 O2 Sat by Pulse 96 Oximetry Medical Decision Making - Medical Decision Making 48-year-old female patient presents to the emergency department today for evaluation of upper abdominal pain and vomiting. Physical examination did reveal midepigastric tenderness. Labs reviewed and were unremarkable. Patient has known gallbladder dysfunction is scheduled to have this taken of the beginning of May. She is afebrile, vital signs stable. Patient does report improvement of symptoms upon reevaluation. She'll be discharged home at this time with pain and nausea medication. She does feel comfortable being discharged home at this time. She is instructed to call her surgeon for sooner follow-up. Return parameters were discussed in detail. She verbalizes understanding and agrees with this plan. - Lab Data Result diagrams: 05/21/18 21:17 05/21/18 21:17 Lab Results 05/21/18 05/21/18 05/21/18 Range/Units 21:17 21:17 21:17 WBC 7.4 (3.8-10.6) k/uL RBC 3.86 (3.80-5.40) m/uL Hgb 12.5 (11.4-16.0) gm/dL Hct 36.9 (34.0-46.0) % MCV 95.5 (80.0-100.0) fL MCH 32.3 (25.0-35.0) pg MCHC 33.8 (31.0-37.0) g/dL RDW 12.4 (11.5-15.5) % Plt Count 179 (150-450) k/uL Neutrophils % 43 % Lymphocytes % 47 % Monocytes % 5 % Eosinophils % 2 % Basophils % 1 % Neutrophils # 3.2 (1.3-7.7) k/uL Lymphocytes # 3.5 (1.0-4.8) k/uL Monocytes # 0.4 (0-1.0) k/uL Eosinophils # 0.1 (0-0.7) k/uL Basophils # 0.0 (0-0.2) k/uL PT 10.4 (9.0-12.0) sec INR 1.0 (<1.2) APTT 28.2 (22.0-30.0) sec Sodium 142 (137-145) mmol/L Potassium 3.5 (3.5-5.1) mmol/L Chloride 110 H (98-107) mmol/L Carbon Dioxide 26 (22-30) mmol/L Anion Gap 6 mmol/L BUN 8 (7-17) mg/dL Creatinine 0.51 L (0.52-1.04) mg/dL Est GFR (CKD-EPI)AfAm >90 (>60 ml/min/1.73 sqM) Est GFR (CKD-EPI)NonAf >90 (>60 ml/min/1.73 sqM) Glucose 83 (74-99) mg/dL Calcium 8.9 (8.4-10.2) mg/dL Total Bilirubin 0.3 (0.2-1.3) mg/dL AST 20 (14-36) U/L ALT 22 (9-52) U/L Alkaline Phosphatase 73 (38-126) U/L Troponin I (0.000-0.034) ng/mL Total Protein 6.4 (6.3-8.2) g/dL Albumin 4.0 (3.5-5.0) g/dL Amylase 47 (30-110) U/L Lipase 104 (23-300) U/L Urine Color Urine Appearance (Clear) Urine pH (5.0-8.0) Ur Specific [place] (1.001-1.035) Urine Protein (Negative) Urine Glucose (UA) (Negative) Urine Ketones (Negative) Urine Blood (Negative) Urine Nitrite (Negative) Urine Bilirubin (Negative) Urine Urobilinogen (<2.0) mg/dL Ur Leukocyte Esterase (Negative) 05/21/18 05/21/18 Range/Units 21:17 21:17 WBC (3.8-10.6) k/uL RBC (3.80-5.40) m/uL Hgb (11.4-16.0) gm/dL Hct (34.0-46.0) % MCV (80.0-100.0) fL MCH (25.0-35.0) pg MCHC (31.0-37.0) g/dL RDW (11.5-15.5) % Plt Count (150-450) k/uL Neutrophils % % Lymphocytes % % Monocytes % % Eosinophils % % Basophils % % Neutrophils # (1.3-7.7) k/uL Lymphocytes # (1.0-4.8) k/uL Monocytes # (0-1.0) k/uL Eosinophils # (0-0.7) k/uL Basophils # (0-0.2) k/uL PT (9.0-12.0) sec INR (<1.2) APTT (22.0-30.0) sec Sodium (137-145) mmol/L Potassium (3.5-5.1) mmol/L Chloride (98-107) mmol/L Carbon Dioxide (22-30) mmol/L Anion Gap mmol/L BUN (7-17) mg/dL Creatinine (0.52-1.04) mg/dL Est GFR (CKD-EPI)AfAm (>60 ml/min/1.73 sqM) Est GFR (CKD-EPI)NonAf (>60 ml/min/1.73 sqM) Glucose (74-99) mg/dL Calcium (8.4-10.2) mg/dL Total Bilirubin (0.2-1.3) mg/dL AST (14-36) U/L ALT (9-52) U/L Alkaline Phosphatase (38-126) U/L Troponin I <0.012 (0.000-0.034) ng/mL Total Protein (6.3-8.2) g/dL Albumin (3.5-5.0) g/dL Amylase (30-110) U/L Lipase (23-300) U/L Urine Color Light Yellow Urine Appearance Clear (Clear) Urine pH 7.0 (5.0-8.0) Ur Specific [place] 1.004 (1.001-1.035) Urine Protein Negative (Negative) Urine Glucose (UA) Negative (Negative) Urine Ketones Negative (Negative) Urine Blood Negative (Negative) Urine Nitrite Negative (Negative) Urine Bilirubin Negative (Negative) Urine Urobilinogen <2.0 (<2.0) mg/dL Ur Leukocyte Esterase Negative (Negative) Disposition Clinical Impression: Abdominal pain Disposition: HOME SELF-CARE Condition: Good Instructions (If sedation given, give patient instructions): Low Fat Diet (ED) , Abdominal Pain (ED) Additional Instructions: Avoid fatty or greasy foods. Take medications as directed. Follow-up with your primary care physician for recheck as soon as possible. surgeon about your increased symptoms. Return to the emergency department for any new, worsening, or concerning symptoms. Prescriptions: Ibuprofen [Motrin] 600 mg PO Q8HR PRN #30 tab PRN Reason: Pain Ondansetron [Zofran ODT] 4 mg PO Q8HR PRN #10 tab PRN Reason: Nausea Is patient prescribed a controlled substance at d/c from ED?: No Referrals: Bob Odom DO [Primary Care Provider] - 1-2 days Porsha Rojas MD [STAFF PHYSICIAN] - 1-2 days Time of Disposition: 00:28
[2018-05-21 22:08] LABS: Appearance,Urine Clear (Clear); Basophils % (A) 1 %; Bilirubin,Urine Negative (Negative); Blood,Urine Negative (Negative); Color,Urine Light Yellow; Eosinophils # (A) 0.1 k/uL (0-0.7); Eosinophils % (A) 2 %; Glucose,Urine (UA) Negative (Negative); HCT 36.9 % (34.0-46.0); HGB 12.5 gm/dL (11.4-16.0); Ketones,Urine Negative (Negative); Leukocyte Esterase,Urine Negative (Negative); Lymphocytes # (A) 3.5 k/uL (1.0-4.8); Lymphocytes % (A) 47 %; MCH 32.3 pg (25.0-35.0); MCHC 33.8 g/dL (31.0-37.0); MCV 95.5 fL (80.0-100.0); Mean Platelet Volume 8.1; Monocytes # (A) 0.4 k/uL (0-1.0); Monocytes % (A) 5 %; Neutrophils # (A) 3.2 k/uL (1.3-7.7); Neutrophils % (A) 43 %; Nitrite,Urine Negative (Negative); Platelet Count 179 k/uL (150-450); Protein,Urine Negative (Negative); RBC 3.86 m/uL (3.80-5.40); RDW 12.4 % (11.5-15.5); Specific Gravity,Urine 1.004 (1.001-1.035); Urobilinogen,Urine <2.0 mg/dL (<2.0); WBC 7.4 k/uL (3.8-10.6)
[2018-05-21 22:17] LABS: Partial Thromboplastin Time 28.2 sec (22.0-30.0); Prothrombin Time 10.4 sec (9.0-12.0)
[2018-05-21 22:28] LABS: ALT 22 U/L (9-52); AST 20 U/L (14-36); Alkaline Phosphatase 73 U/L (38-126); Amylase 47 U/L (30-110); Anion Gap 6 mmol/L; Blood Urea Nitrogen 8 mg/dL (7-17); Calcium 8.9 mg/dL (8.4-10.2); Carbon Dioxide 26 mmol/L (22-30); Chloride 110 mmol/L (98-107); Glucose 83 mg/dL (74-99); Lipase 104 U/L (23-300); Potassium 3.5 mmol/L (3.5-5.1); Sodium 142 mmol/L (137-145); Total Bilirubin 0.3 mg/dL (0.2-1.3); Total Protein 6.4 g/dL (6.3-8.2)
[2018-05-21] MEDS ORDERED: HYDROmorphone 2 MG/ML 1 ML SYRINGE IVP STA (23:32)
[2018-05-21 23:58] VITALS: BP 152/86; PULSE 60; RESP 16; TEMP 97.5
[2018-05-22] MEDS ORDERED: ACET/COD 300 MG/30 MG STARTER PACK 6 TAB BTL PO STA (00:28)
[2018-05-22] MEDS ORDERED: ONDANSETRON 4 MG ODT STARTER PACK 2 TAB BTL PO STA (00:28)
== END 2018-05-22 00:48 | disposition home or self-care (01) ==
LOC: EC 20:01
DX: K82.8 Other specified diseases of gallbladder (principal); R06.02 Shortness of breath; F41.9 Anxiety disorder, unspecified; R56.9 Unspecified convulsions; G43.909 Migraine, unspecified, not intractable, without status migrainosus; F32.9 Major depressive disorder, single episode, unspecified; F17.200 Nicotine dependence, unspecified, uncomplicated; Z98.51 Tubal ligation status; Z79.899 Other long term (current) drug therapy
CPT/HCPCS: 99284; 96374; 96375 ×2; 96376; 96361; 36415; 93005; 80053; 82150; 83690; 84484; 85025; 85610; 85730; 81003; J2270; J1170; J2405

== ENCOUNTER → 2018-06-25 | Outpatient (CLI) | payer MEDICARE, OTHER ==
--- NOTE | 2018-06-25 09:41 | MM ---
Reason for exam: clinical finding. Baseline mammogram. History: Patient is postmenopausal. Indicated problem(s): lump or thickening in the left breast. Physical Findings: Nurse Summary: 0.5 x 0.5cm nodule in the left breast at 1 o'clock (nurse ts). MG 3D Diag Mammo W/Cad WONG Bilateral CC, MLO, and XCCL view(s) were taken. The breast tissue is heterogeneously dense. This may lower the sensitivity of mammography. There is no discrete abnormality. These results were verbally communicated with the patient and result sheet given to the patient on 06/25/18. ASSESSMENT: Incomplete: need additional imaging evaluation, BI-RAD 0 RECOMMENDATION: Ultrasound of the left breast. (palpable)
--- NOTE | 2018-06-25 09:42 | USB ---
Reason for exam: additional evaluation requested from abnormal screening. History: Patient is postmenopausal. US Breast LT Left complete breast ultrasound includes all four quadrants, the retroareolar region and axilla. Finding demonstrates a 4 x 5 x 5mm oval, cystic lesion at 1 o'clock, a 1.2 x 0.4 x 0.9cm oval, cystic lesion at 2 o'clock and a 4 x 2 x 5mm oval, cystic lesion at 3 o'clock BB. Overall fibrocystic change. Multiple cystic areas visualized. These results were verbally communicated with the patient and result sheet given to the patient on 06/25/18. ASSESSMENT: Benign, BI-RAD 2 RECOMMENDATION: Routine screening mammogram of both breasts in 1 year.
== END | disposition home or self-care (01) ==
LOC: RADMAMWWP 07:40
PROVIDERS: ATTEND Family Medicine
DX: N63.42 Unspecified lump in left breast, subareolar (principal); R92.8 Other abnormal and inconclusive findings on diagnostic imaging of breast
CPT/HCPCS: 77066; 76641; G0279; 77062

== ENCOUNTER → 2019-04-23 | Outpatient (CLI) | payer MEDICARE, OTHER ==
--- NOTE | 2019-04-23 13:50 | US ---
EXAMINATION TYPE: US gallbladder DATE OF EXAM: 04/23/2019 COMPARISON: CT 02/05/16 CLINICAL HISTORY: K81.9 Cholecystitis. Post prandial pain, N/V EXAM MEASUREMENTS: Liver Length: 16.9 cm Gallbladder Wall: 0.1 cm CBD: 0.4 cm Right Kidney: 11.4 x 5.4 x 4.3 cm Pancreas: wnl Liver: wnl Gallbladder: No stones seen Evidence for sonographic Ray's sign: No CBD: wnl Right Kidney: No hydronephrosis or masses seen IMPRESSION: No sonographic evidence of cholelithiasis nor acute cholecystitis.
--- NOTE | 2019-04-23 14:58 | NM ---
EXAMINATION TYPE: NM hepatobiliary w EF DATE OF EXAM: 04/23/2019 COMPARISON: NONE HISTORY: Cholecystitis TECHNIQUE: After the intravenous administration of 4.73 mCi Tc 99m Mebrofenin hepatobiliary scintigra phy is performed. Immediate images post injection. FINDINGS: There is satisfactory initial accumulation of tracer by the liver. The gallbladder is visualized wit hin 14 minutes. The small bowel activity is noted within 60 minutes. At one hour 8 ounces of oral e nsure plus is given to mimic CCK and gallbladder ejection fraction is calculated at 65 %, in the norm al range. Therefore there is no scintigraphic evidence of cystic or common bile duct obstruction to suggest acute cholecystitis or gallbladder dyskinesia. IMPRESSION: Exam is within normal limits.
== END | disposition home or self-care (01) ==
LOC: RADUSWWP 12:11
PROVIDERS: ATTEND Surgery Plastic and Reconstructive Surgery
DX: K81.9 Cholecystitis, unspecified (principal)
CPT/HCPCS: 76705; 78226; A9537

== ENCOUNTER → 2020-02-14 | Outpatient (CLI) | payer MEDICARE, OTHER | END | disposition home or self-care (01) | LOC: LABWHC1 13:14 | PROVIDERS: ATTEND Family Medicine | DX: Z20.828 Contact with and (suspected) exposure to other viral communicable diseases (principal) | CPT/HCPCS: U0003; C9803 ==

== ENCOUNTER → 2020-05-14 | Outpatient (CLI) | payer MEDICARE, OTHER ==
--- NOTE | 2020-05-14 17:44 | BD ---
EXAMINATION TYPE: Axial Bone Density DATE OF EXAM: 05/14/2020 COMPARISON: NONE CLINICAL HISTORY: 50 YROLD FEMALE.....ICD-10 CODE: R63.6 UNDERWEIGHT Height: 60.2 Weight: 103 FRAX RISK QUESTIONS: Glucocorticoids (More than 3mos): YES (Ex: prednisone, prednisolone, methylprednisolone, dexamethasone, and hydrocortisone). History of Fracture in Adulthood: YES Current Tobacco Use: YES RISK FACTORS HISTORY OF: RT HIP AND FEMUR BREAK WITH SURGICAL REPAIR HX OF LT ANKLE FX WITH SURGICAL REPAIR History of Wrist Fracture: YES, RT WRIST WITH CASTING Surgery RT HIP AND FEMUR AN ADULT Active: YES Postmenopausal woman: UNSURE, NOVASURE PROCEDURE AT AGE 45 Hyperparathyroidism: NO Adrenal Insufficiency: NO MEDICATIONS: Prednisone or other steroids: YES, FOR COPD, FOR ABOUT 10 YRS Additional Medications: VIT D AND CALCIUM Additional History: COPD EXAM MEASUREMENTS: Bone mineral densitometry was performed using the [employer] System. Bone mineral density as measured about the Lumbar spine is: ----- L1-L4(G/cm2): 1.088 T Score Values are as follows: ----- L1: -0.9 ----- L2: -1.2 ----- L3: -0.4 ----- L4: -0.6 ----- L1-L4: -0.8 Bone mineral density FIRST DEXA SCAN....BASELINE STUDY Bone mineral density about the L hip (g/cm2): 0.827 T Score values are as follows: -----L Neck: -1.5 -----L Total: -1.4 Bone mineral density BASELINE STUDY FRAX%s: THERE IS A 12.7% CHANCE FOR A MAJOR OSTEOPOROTIC FX AND A 2.7% CHANCE FOR A HIP......PROBA BILITY FOR FX IN 10 YRS TIME IMPRESSION: Osteopenia (T Score between -2.5 and -1). There is slightly increased risk of fracture and the patient may be considered for treatment. Re-Screen 2-5 years. NOTE: T-SCORE=SD OF THE YOUNG ADULT MEAN.
== END | disposition home or self-care (01) ==
LOC: RADBDWWP 08:04
PROVIDERS: ATTEND Family Medicine
DX: M85.80 Other specified disorders of bone density and structure, unspecified site (principal)
CPT/HCPCS: 77080

== ENCOUNTER → 2024-08-13 | Outpatient (CLI) | payer MEDICARE, OTHER ==
--- NOTE | 2024-08-13 13:01 | CTL ---
EXAMINATION TYPE: CT Low Dose Lung DATE OF EXAM: 08/13/2024 8:47 AM COMPARISON: 02/05/2016 CLINICAL INDICATION: Female, 54 years old with history of Z12.2,F17.210, Personal history of tobacco use., History of tobacco use. Current smoker with 36 pack-year history TECHNIQUE: Low dose computed tomography scan was performed through the chest at 1 mm thick sections a nd reconstructed images in multiple planes at 1 mm and [address] DLP: 39.5 mGycm, CT CTDI: 1.1 mGy, Automated exposure control for dose reduction was used. CT DIAGNOSTIC QUALITY: Satisfactory FINDINGS: The heart is normal size without pericardial effusion. No significant coronary artery calcifications are seen. Aorta normal caliber with conventional arch vessel branching anatomy. No thoracic lymphadenopathy by CT size criteria. Mild diffuse bronchial wall thickening. [id number] emphysematous change. * 8 mm right apical pulmonary nodule, axial image 38. * Biapical pleural parenchymal scarring. * Scattered subtle nonspecific 3 mm right upper lobe groundglass pulmonary nodules, axial images 37, 43, 46, 49, 58, 66. Not seen previously. * A couple pulmonary nodules measuring up to 4 mm of the right midlung are unchanged, axial image 14 2. * 5 mm posterior left midlung pulmonary nodule is unchanged, axial image 107. * 3 mm left upper lobe pulmonary nodule, axial image 106 is unchanged. No consolidation or pleural effusion. Visualized upper abdomen shows no gross abnormality. No osseous destructive process. IMPRESSION: 1. LungRADS Category 4B (very suspicious, >15% chance of malignancy); new 8 mm right apical pulmonary nodule. Three-month follow-up low-dose CT chest recommended. Early neoplasm should be excluded. 2. Scattered tiny groundglass nodules measuring up to 3 mm not well seen previously favored to repres ent an infectious/inflammatory etiology. These can also be reassessed at follow-up. Other nodules julianna suring up to 5 mm are unchanged. 3. COPD with mild to moderate emphysema. Recommend smoking cessation. CT LUNG RAD AND CT CHEST RECOMMENDATION: Lung-Rad 4B or 4X Very Suspicious: Follow-up Chest CT with o r without contrast or PET/CT and/or tissue sampling. PET/CT may be used when there is a > 8 mm solid component. S Modifier (other clinically significant findings): None [facility], Workstation: [employer], 08/13/2024 12:59 PM
== END | disposition home or self-care (01) ==
LOC: RADCTMAIN 08:30
PROVIDERS: ATTEND Family Medicine
DX: Z12.2 Encounter for screening for malignant neoplasm of respiratory organs (principal); F17.210 Nicotine dependence, cigarettes, uncomplicated; J43.9 Emphysema, unspecified; R91.8 Other nonspecific abnormal finding of lung field
CPT/HCPCS: 71271